=== PATIENT | male | born 1935 | race Caucasian/White ===

== ENCOUNTER 2017-04-08 17:04 | Inpatient (IN) | payer OTHER, MEDICARE ==
[2017-04-08] VITALS (8 sets, daily range): BP systolic 113–199; BP diastolic 74–93; PULSE 57–108; RESP 18–20; TEMP 97.7; O2SAT 80–97
[~2017-04-08] VITALS: Ht 182.9 cm; Wt 69.2 kg
[~2017-04-08 17:04] MED LIST: ALBU6.7H INH; CARV6.252 PO; LEVA500T PO; MUCI600T PO; OMEG100037 PO; PRED10 PO; RAMI2.5 PO
[2017-04-08] MEDS ORDERED: TYLETAB34 PO (17:24)
[2017-04-08] MEDS ORDERED: SYMB80AE INH (17:26)
[2017-04-08] MEDS ORDERED: ALBU0.63 NEB (17:26)
--- NOTE | 2017-04-08 17:29 | PD ---
HPI Chief Complaint: Respiratory Symptoms Time Seen by Provider: 17:27 Travel History International Travel<30 days: No Contact w/Intl Traveler<30days: No Traveled to known affect area: No History of Present Illness HPI 81 YO M with PMH of GERD, CAD, COPD, CHF, A. fib, HTN, chronic back pain, implanted AICD presents to the ED for evaluation of 3 day history of worsening nonproductive cough and shortness of breath. Onset gradual. Patient denies fever, chills, abdominal pain, nausea, vomiting, dysuria, lower extremity swelling. He uses oxygen at home which he ordered from [facility]. O2 has not been ordered by his primary physician at the [place]. He is followed by Dr. Rojas, cardiology and Dr. Rosenberg, pulmonology. He was seen at a [facility] today, told that he had PNA or possible effusion and instructed to follow up in the emergency department. PFSH Past Medical History Arthritis: Yes Asthma: Yes Blood Disorders: Yes (CIRCULATION DISORDER) Anxiety: Yes Depression: Yes Heart Rhythm Problems: Yes (heart murmer. ) Cancer: No Cardiovascular Problems: Yes (CAD) High Cholesterol: No Chemotherapy: No Chest Pain: Yes Congestive Heart Failure: No COPD: Yes Coronary Artery Disease: Yes Diabetes: No Diminished Hearing: Yes (KARL) Endocrine: No Gastrointestinal Disorders: Yes (GERD, ULCER HX) GERD: Yes Genitourinary: Yes (BPH, HX KIDNEY STONE) Headaches: Yes (TEMPORAL) Hepatitis: Yes (HEP C) Hiatal Hernia: No Hypertension: Yes Immune Disorder: No Implanted Vascular Access Dvce: Yes Kidney Stones: No Musculoskeletal: Yes ( SPINAL STENOSIS) Neurologic: Yes (NUMBNESS LEFT ARM, VERTIGO, HEADACHES) Psychiatric: No Reproductive: No Respiratory: Yes (PNEUMOTHORAX - L LUNG ) Migraines: No Myocardial Infarction: Yes Radiation Therapy: No Renal Failure: No Seizures: No Sickle Cell Disease: No Sleep Apnea: Yes Thyroid Disease: No Ulcer: Yes Past Surgical History Abdominal Surgery: Yes (HEMIGASTRECTOMY (40%), LEFT ING. HERNIA REP. (X3)) AICD: No Arteriovenous Shunt: No Body Medical Devices: MARCO LEFT LUNG, CERVICAL FUSION Cardiac Surgery: Yes Ear Surgery: No Endocrine Surgery: No Eye Surgery: Yes (B CATARACT EXTRACT) Genitourinary Surgery: Yes Gynecologic Surgery: No Insulin Pump: No Joint Replacement: No Neurologic Surgery: No Oral Surgery: No Pacemaker: Yes (PACE/DEFIB, UNKNOWN TYPE/MANUFAC) Thoracic Surgery: Yes (LEFT PNEUMOTHORAX REP) Other Surgery: Yes (SINUS X3) Social History Alcohol Use: No Tobacco Use: No Substance Use: No Allergies-Medications (Allergen,Severity, Reaction): Coded Allergies: PEANUTS (Verified Allergy, Intermediate, 04/08/17) Black Pepper (Unverified Adverse Reaction, Intermediate, IRRITATES SINUSES , 04/08/17) Egg Allergy (Unverified Adverse Reaction, Intermediate, COUGH, 04/08/17) PT STATES NOT ALLERGIC TO EGGS Reported Meds & Prescriptions Reported Meds & Active Scripts Active Reported Symbicort Inh (Budesonide/Formoterol Fumarate) 80-4.5 Mcg/Act Aero 1 Puff INH Q12HR Albuterol Neb (Albuterol Sulfate) 0.63 Mg/3 Ml Neb 0.63 Mg NEB QID NEB PRN Tylenol-Codeine #3 (Acetaminophen-Codeine) 300-30 mg Tab 1-2 Tab PO Q8HR PRN Review of Systems Except as stated in HPI: all other systems reviewed are Neg Physical Exam Narrative GENERAL: Thin, elderly white male in NAD. Coughing frequently on exam. SKIN: Focused skin assessment warm/dry. HEAD: Normocephalic. EYES: No scleral icterus. No injection or drainage. NECK: Supple, trachea midline. ++JVD. No lymphadenopathy. CARDIOVASCULAR: Regular rate and rhythm without murmurs, gallops, or rubs. RESPIRATORY: Breath sounds clear and equal bilaterally. ++ accessory muscle use. GASTROINTESTINAL: Abdomen soft, non-tender, nondistended. MUSCULOSKELETAL: No cyanosis, or edema. Hohmann sign negative bilaterally. BACK: Nontender without obvious deformity. No CVA tenderness. Data Data Last Documented VS Vital Signs Date Time Temp Pulse Resp B/P Pulse Ox O2 Delivery O2 Flow Rate FiO2 04/08/17 20:30 94 20 189/90 95 Room Air 04/08/17 17:18 2 04/08/17 17:08 97.7 Orders Electrocardiogram (04/08/17 ) Complete Blood Count With Diff (04/08/17 17:39) Comprehensive Metabolic Panel (04/08/17 17:39) B-Type Natriuretic Peptide (04/08/17 17:39) Act Partial Throm Time (Ptt) (04/08/17 17:39) Prothrombin Time / Inr (Pt) (04/08/17 17:39) Ckmb (Isoenzyme) Profile (04/08/17 17:39) Troponin I (04/08/17 17:39) Urinalysis - C+S If Indicated (04/08/17 17:39) Blood Culture (04/08/17 17:39) Iv Access Insert/Monitor (04/08/17 17:39) Ecg Monitoring (04/08/17 17:39) Oximetry (04/08/17 17:39) Oxygen Administration (04/08/17 17:39) Chest, Single Ap (04/08/17 17:39) Sodium Chloride 0.9% Flush (Ns Flush) (04/08/17 17:45) Lidocaine Pf 4% Neb (Lidocaine Pf 4% Neb (04/08/17 18:45) CKMB (04/08/17 17:45) CKMB% (04/08/17 17:45) Arterial Blood Gas (Abg) (04/08/17 ) Levofloxacin 750 Mg Premix Inj (Levaquin (04/08/17 20:15) Benzonatate (Tessalon) (04/08/17 20:30) ^ Straight Catheter (04/08/17 20:17) B-Type Natriuretic Peptide (04/08/17 20:19) Diet Heart Healthy (04/09/17 Breakfast) Admit Order (Ed Use Only) (04/08/17 21:11) Labs Laboratory Tests Test 04/08/17 04/08/17 04/08/17 17:45 19:16 20:20 White Blood Count 9.0 TH/MM3 Red Blood Count 4.32 MIL/MM3 Hemoglobin 13.7 GM/DL Hematocrit 42.0 % Mean Corpuscular Volume 97.2 FL Mean Corpuscular Hemoglobin 31.7 PG Mean Corpuscular Hemoglobin 32.6 % Concent Red Cell Distribution Width 13.3 % Platelet Count 257 TH/MM3 Mean Platelet Volume 8.9 FL Neutrophils (%) (Auto) 72.2 % Lymphocytes (%) (Auto) 13.6 % Monocytes (%) (Auto) 10.5 % Eosinophils (%) (Auto) 2.9 % Basophils (%) (Auto) 0.8 % Neutrophils # (Auto) 6.5 TH/MM3 Lymphocytes # (Auto) 1.2 TH/MM3 Monocytes # (Auto) 0.9 TH/MM3 Eosinophils # (Auto) 0.3 TH/MM3 Basophils # (Auto) 0.1 TH/MM3 CBC Comment DIFF FINAL Differential Comment Prothrombin Time 12.7 SEC Prothromb Time International 1.1 RATIO Ratio Activated Partial 29.3 SEC Thromboplast Time Sodium Level 130 MEQ/L Potassium Level 4.1 MEQ/L Chloride Level 94 MEQ/L Carbon Dioxide Level 24.8 MEQ/L Anion Gap 11 MEQ/L Blood Urea Nitrogen 14 MG/DL Creatinine 0.86 MG/DL Estimat Glomerular Filtration 85 ML/MIN Rate Random Glucose 87 MG/DL Calcium Level 8.7 MG/DL Total Bilirubin 0.7 MG/DL Aspartate Amino Transf 18 U/L (AST/SGOT) Alanine Aminotransferase 21 U/L (ALT/SGPT) Alkaline Phosphatase 98 U/L Total Creatine Kinase 112 U/L Creatine Kinase MB 4.4 NG/ML Troponin I LESS THAN 0.02 NG/ML B-Type Natriuretic Peptide 194 PG/ML Total Protein 7.6 GM/DL Albumin 4.3 GM/DL Blood Gas Puncture Site RT RADIAL Blood Gas Patient Temperature 98.6 Blood Gas HCO3 21 mmol/L Blood Gas Base Excess -2.3 mmol/L Blood Gas Oxygen Saturation 93 % Arterial Blood pH 7.48 Arterial Blood Partial 29 mmHg Pressure CO2 Arterial Blood Partial 76 mmHG Pressure O2 Arterial Blood Oxygen Content 17.3 Vol % Arterial Blood 0.5 % Carboxyhemoglobin Arterial Blood Methemoglobin 1.5 % Blood Gas Hemoglobin 13.2 G/DL Oxygen Delivery Device ROOM AIR Blood Gas Inspired Oxygen 21 % Urine Color YELLOW Urine Turbidity CLEAR Urine pH 6.5 Urine Specific [place] 1.014 Urine Protein NEG mg/dL Urine Glucose (UA) 70 mg/dL Urine Ketones 10 mg/dL Urine Occult Blood NEG Urine Nitrite NEG Urine Bilirubin NEG Urine Urobilinogen LESS THAN 2.0 MG/DL Urine Leukocyte Esterase NEG Urine RBC LESS THAN 1 /hpf Urine WBC 1 /hpf Urine Hyaline Casts 1 /lpf Microscopic Urinalysis Comment CULT NOT INDICATED MDM Medical Decision Making Medical Screen Exam Complete: Yes Emergency Medical Condition: Yes Differential Diagnosis COPD exacerbation versus PNA versus CHF exacerbation versus Narrative Course 81 YO M with PMH of GERD, CAD, COPD, CHF, A. fib, HTN, chronic back pain, implanted AICD presents to the ED for evaluation of 3 day history of worsening nonproductive cough and shortness of breath. Onset gradual. Patient denies fever, chills, abdominal pain, nausea, vomiting, dysuria, lower extremity swelling. He uses oxygen at home which he ordered from [facility]. O2 has not been ordered by his primary physician at the [place]. He is followed by Dr. Rojas, cardiology and Dr. Rosenberg, pulmonology. He was seen at a [facility] care today, told that he had PNA or possible effusion and instructed to follow up in the emergency department. 97.7, O2 sat 85% on room air in triage. Physical exam reveals a thin white male in no acute distress. Chronically coughing but breath sounds are clear bilaterally. No lower extremity edema. Homans sign negative bilaterally. Blood cultures were obtained. Patient was administered aerosolized lidocaine to treat cough. CBC: WBC 9.0. Hemoglobin 13.7. Coags INR 1.1. CMP: Sodium 130, chloride 94. Cardiac enzymes negative 1. BNP: 195 EKG: Rate 88, paced rhythm. No ST changes. Reviewed by Dr. Rose. CXR: Left lung base atelectasis, surgical changes and slightly worsened volume loss on the left per radiology. Blood gas: Respiratory alkalosis with secondary non-anion gap metabolic acidosis. Patients cough not improved with treatment. He is administered 100mg Tessalon PO and IV Levaquin. O2 sats currently 96% on room air. I discussed the patient with Dr. Rose who recommends admission for observation. I discussed this plan with the patient who is agreeable. Call placed to [facility]. I spoke with Dr. Terrell who agrees to accept the patient to the medicine service. Please see medicine notes for disposition. Agnieszka Fields Apr 08, 2017 17:29
[2017-04-08] MEDS ORDERED: SODIUM CHLORIDE 0.9% FLUSH 10 ML FLUSH IVF PRN (17:45)
--- NOTE | 2017-04-08 18:01 | RADRPT ---
EXAM DATE/TIME: 04/08/2017 17:52 [facility] COMPARISON: No previous studies available for comparison. INDICATIONS : Difficulty breathing and cough. MEDICAL HISTORY : Hypertension. Chronic obstructive pulmonary disease. Asthma. SURGICAL HISTORY : Pacemaker. Left pneumothorax repair. Cervical fusion. ENCOUNTER: Initial ACUITY: 1 month PAIN SCORE: 0/10 LOCATION: Bilateral chest FINDINGS: Trace left base atelectasis noted. There is left volume loss, increased. Elevated left hemidiaphragm, not new but worse. Surgical clips project over the left lung apex. Right lung is clear. No effusion or pneumothorax seen on either side. CONCLUSION: Mild left base atelectasis. Surgical changes and with slightly worse volume loss on the left. Darrell Reyes MD on April 08, 2017 at 17:58 Board Certified Radiologist. This report was verified electronically.
[2017-04-08 18:19] LABS: AUTOMATED NEUTROPHIL # 6.5 TH/MM3 (1.8-7.7); BASOPHIL # 0.1 TH/MM3 (0-0.2); BASOPHIL % 0.8 % (0.0-2.0); EOSINOPHIL # 0.3 TH/MM3 (0-0.4); EOSINOPHIL % 2.9 % (0.0-4.0); HEMO FLAGS DIFF FINAL; LYMPH % 13.6 % (9.0-44.0); LYMPHOCYTE # 1.2 TH/MM3 (1.0-4.8); MEAN CELL VOLUME 97.2 FL (80.0-100.0); MEAN CORPUSCULAR HEMOGLOBIN 31.7 PG (27.0-34.0); MEAN CORPUSCULAR HGB CONC 32.6 % (32.0-36.0); MONO % 10.5 % (0.0-8.0); NEUT % 72.2 % (16.0-70.0); PLATELET COUNT 257 TH/MM3 (150-450); RED BLOOD COUNT 4.32 MIL/MM3 (4.50-5.90); RED CELL DISTRIBUTION WIDTH 13.3 % (11.6-17.2)
[2017-04-08 18:29] LABS: APTT (PATIENT) 29.3 SEC (24.3-30.1); INTERNATIONAL NORMALIZED RATIO 1.1 RATIO; PROTHROMBIN TIME - PATIENT 12.7 SEC (9.8-11.6)
[2017-04-08 18:34] LABS: ANION GAP 11 MEQ/L (5-15); AST (GOT) 18 U/L (15-37); BICARBONATE 24.8 MEQ/L (21.0-32.0); BLOOD UREA NITROGEN 14 MG/DL (7-18); CHLORIDE 94 MEQ/L (98-107); GLOMERULAR FILTRATION RATE 85 ML/MIN (>89); POTASSIUM 4.1 MEQ/L (3.5-5.1); SODIUM (NA) 130 MEQ/L (136-145)
[2017-04-08 18:35] LABS: ALT (GPT) 21 U/L (12-78)
[2017-04-08 18:39] LABS: ALKALINE PHOSPHATASE 98 U/L (45-117); CREATINE KINASE 112 U/L (39-308); TOTAL BILIRUBIN ADULT 0.7 MG/DL (0.2-1.0)
[2017-04-08] MEDS ORDERED: RESP: LIDOCAINE HCL 4% PF 5 ML NEB NEB ONE (18:45)
[2017-04-08 18:51] LABS: CKMB 4.4 NG/ML (0.5-3.6)
[2017-04-08 19:26] LABS: BLOOD GAS BASE EXCESS -2.3 mmol/L (-2-2); BLOOD GAS CARBOXYHEMOGLOBIN 0.5 % (0-4); BLOOD GAS HCO3 21 mmol/L (22-26); BLOOD GAS METHEMOGLOBIN 1.5 % (0-2); BLOOD GAS O2 HGB SATURATION 93 % (90-100); BLOOD GAS OXYGEN CONTENT 17.3 Vol % (12.0-20.0); BLOOD GAS PCO2 29 mmHg (38-42); BLOOD GAS PO2 76 mmHG (61-120); BLOOD GAS TOTAL HGB 13.2 G/DL (12.0-16.0); CRITICAL VALUE NO; DRAW SITE RT RADIAL; FIO2 21 %; NUMBER OF ARTERIAL PUNCTURES 1; OXYGEN DEVICE ROOM AIR; STAT YES; TEMP CORR TO 98.6; ULNAR PULSE PRESENT
[2017-04-08] MEDS ORDERED: LEVOFLOXACIN 750 MG PREMIX INJ 150 ML IV ONE (20:15)
[2017-04-08] MEDS ORDERED: BENZONATATE 100 MG CAP PO ONE ×2 (20:30→22:15)
[2017-04-08 21:06] LABS: BLOOD, URINE NEG (NEG); COMMENT (UR) CULT NOT INDICATED; CULTURE IF INDICATED CULT NOT INDICATED; GLUCOSE,URINE 70 mg/dL (NEG); HYALINE CAST, URINE 1 /lpf (RARE); KETONE, URINE 10 mg/dL (NEG); NITRITE,URINE NEG (NEG); PH, URINE 6.5 (5.0-8.5); URINE COLOR YELLOW (YELLW/STRAW)
[2017-04-08] MEDS ORDERED: RESP: ALBUTEROL 2.5 MG/IPRATROPIUM 0.5 MG NEB (PRN) NEB (21:45)
[2017-04-08] MEDS ORDERED: LEVOFLOXACIN 750 MG PREMIX INJ 150 ML IV SCH (21:45)
[2017-04-08] MEDS ORDERED: SODIUM CHLORIDE 0.9% FLUSH 10 ML FLUSH IV FLUSH PRN (21:45)
[2017-04-08] MEDS ORDERED: BISACODYL 10 MG SUPP RECTAL PRN (21:45)
[2017-04-08] MEDS ORDERED: LACTULOSE SYRUP 20 GM/30 ML CUP PO PRN (21:45)
[2017-04-08] MEDS ORDERED: MAGNESIUM HYDROXIDE SUSP 30 ML CUP PO PRN (21:45)
[2017-04-08] MEDS ORDERED: ONDANSETRON HCL 4 MG/2 ML VIAL IVP PRN (21:45)
[2017-04-08] MEDS ORDERED: ACETAMINOPHEN 325 MG TAB PO PRN (21:45)
[2017-04-08] MEDS: SODIUM CHLOR 0.9% 1000 ML INJ 1,000 ML IV SCH (22:08)
[2017-04-08] MEDS: methylPREDNISolone SOD SUCC 40 MG/1 ML VIAL IV PUSH SCH (22:33)
[2017-04-09] VITALS (8 sets, daily range): BP systolic 113–190; BP diastolic 70–101; PULSE 67–95; RESP 14–22; TEMP 95.6–97.9; O2SAT 94–97
[2017-04-09] MEDS: BENZONATATE 100 MG CAP PO PRN ×3 (00:33→22:09)
[2017-04-09] MEDS: guaiFENesin/CODEINE SYRUP 200 MG/20 MG/10 ML CUP PO PRN ×3 (00:33→22:09)
--- NOTE | 2017-04-09 01:15 | HHI.HP ---
HPI Service [facility] Primary Care Physician [facility] Admission Diagnosis hypoxia, possible PNA Diagnoses: Chief Complaint: worsening cough Travel History International Travel<30 Days: No Contact w/Intl Traveler <30 Da: No Traveled to Known Affected Are: No History of Present Illness Written by Lisa Fuentes, acting as scribe for Dr. Terrell on 04/09/17 at 01 :12. This note was transcribed by scribMarissa MIJARES. I, Dr. Dolores Terrell personally performed the history, physical exam, and medical decision making; and confirmed the accuracy of the information in the transcribed note. Authenticated by Dr. Dolores Terrell on 04/09/17 at 01:12. This is a 81-year-old male with past medical history which includes coronary artery disease with SC, Anemia, Allergic rhinitis, Chronic pain and GERD. Patient reports he has had a persistent dry nonproductive cough for the past 1- 2 months. Patient reports the is cough started after he had a Left arm venous bypass graft. Patient presents to the ER today due to worsening of this persistent nonproductive cough and shortness of breath. On admission patient presented with pulse oxygenation of 85%. Patient uses oxygen at home which he ordered from [facility]. O2 has not been ordered by his physician. Patient reports his cough continues through out both day and night. Patient has tried over the counter Mucinex with minimal relief. Patient reports drinking wine daily to help sooth his throat. Patient denies chest pain, fever , chills, abdominal pain, nausea, vomiting, dysuria, lower extremity swelling or weight gain. Patient is followed by Dr. Rojas, cardiology and Dr. Schroeder, pulmonology. [facility], told that he had PNA or possible effusion and instructed to follow up in the emergency department. Review of Systems Except as stated in HPI: all other systems reviewed are Neg Past Family Social History Past Medical History Coronary artery disease with SC Anemia Allergic rhinitis Chronic pain GERD Past Surgical History partial gastrectomy Left arm venous bypass graft Cataract removal Multiple back and neck surgeries Bilateral inguinal hernia repair on 01/29/15 Reported Medications Symbicort Inh (Budesonide/Formoterol Fumarate) 80-4.5 Mcg/Act Aero 1 Puff INH Q12HR Albuterol Neb (Albuterol Sulfate) 0.63 Mg/3 Ml Neb 0.63 Mg NEB QID NEB PRN Tylenol-Codeine #3 (Acetaminophen-Codeine) 300-30 mg Tab 1-2 Tab PO Q8HR PRN Allergies: Coded Allergies: PEANUTS (Verified Allergy, Intermediate, 04/08/17) Black Pepper (Unverified Adverse Reaction, Intermediate, IRRITATES SINUSES , 04/08/17) Egg Allergy (Unverified Adverse Reaction, Intermediate, COUGH, 04/08/17) PT STATES NOT ALLERGIC TO EGGS Active Ordered Medications Current Medications Medications (Trade) Dose Ordered Sig/Dashawn Route Start Time Stop Time Status Last Admin (NS 1000 ml Inj) 1,000 ml @ 100 mls/hr Q10H IV 04/08/17 21:36 04/08/17 22:08 (NS Flush) 2 ml UNSCH PRN IV FLUSH 04/08/17 21:45 (NS Flush) 2 ml BID IV FLUSH 04/09/17 09:00 (Tylenol) 650 mg Q4H PRN PO 04/08/17 21:45 (Zofran Inj) 4 mg Q6H PRN IVP 04/08/17 21:45 (Restoril) 15 mg HS PRN PO 04/08/17 21:45 (Carol-Colace) 1 tab BID PO 04/09/17 09:00 (Milk Of Magnesia Liq) 30 ml Q12H PRN PO 04/08/17 21:45 (Senokot) 17.2 mg Q12H PRN PO 04/08/17 21:45 (Dulcolax Supp) 10 mg DAILY PRN RECTAL 04/08/17 21:45 Lactulose 30 ml 30 ml DAILY PRN PO 04/08/17 21:45 (Levaquin 750 Mg Premix Inj) 150 ml @ 100 mls/hr Q24H IV 04/09/17 21:00 (Tessalon) 100 mg TID PRN PO 04/08/17 21:45 04/09/17 00:33 (SoluMEDROL INJ) 40 mg Q8HR IV PUSH 04/08/17 22:00 04/08/17 22:33 (Robitussin Ac 200-20 Mg/10 ml Liq) 10 ml Q6H PRN PO 04/09/17 00:00 04/09/17 00:33 Family History Mother had DM Social History Patient lives at home with son and daughter, stop smoking 50+ years ago used to smoke 1.5 packs per day for 14 years ETOH use 1-2 glasses of wine per day Physical Exam Vital Signs Vital Signs Date Time Temp Pulse Resp B/P Pulse Ox O2 Delivery O2 Flow Rate FiO2 04/08/17 22:09 95 18 183/92 95 04/08/17 22:02 94 21 04/08/17 21:25 108 18 189/90 95 Room Air 04/08/17 20:30 94 20 189/90 95 Room Air 04/08/17 17:25 90 20 199/93 96 Room Air 04/08/17 17:18 97 Nasal Cannula 2 04/08/17 17:18 97 Nasal Cannula 2 04/08/17 17:18 17 Room Air 04/08/17 17:08 97.7 57 20 113/74 85 Physical Exam GENERAL: This is a well-nourished, well-developed patient, persistent dry nonproductive cough on inspiration SKIN: No rashes, ecchymoses or lesions. Cool and dry. HEAD: Atraumatic. Normocephalic. No temporal or scalp tenderness. EYES: Extraocular motions intact. No scleral icterus. No injection or drainage. ENT: Nose without bleeding, purulent drainage or septal hematoma. Throat without erythema, tonsillar hypertrophy or exudate. Uvula midline. Airway patent. NECK: Trachea midline. No JVD or lymphadenopathy. Supple, nontender, no meningeal signs. CARDIOVASCULAR: Regular rate and rhythm without murmurs, gallops, or rubs. RESPIRATORY: Persistent cough with inspiration. Lungs clear to auscultation. Breath sounds equal bilaterally. No wheezes, rales, or rhonchi. GASTROINTESTINAL: Abdomen soft, non-tender, nondistended. No hepato-splenomegaly , or palpable masses. No guarding. MUSCULOSKELETAL: Extremities without clubbing, cyanosis, or edema. No joint tenderness, effusion, or edema noted. No calf tenderness. Negative Homans sign bilaterally. NEUROLOGICAL: Awake and alert. Cranial nerves II through XII intact. Motor and sensory grossly within normal limits. Five out of 5 muscle strength in all muscle groups. Normal speech. Laboratory Laboratory Tests Test 04/08/17 04/08/17 04/08/17 04/08/17 17:45 19:16 20:20 22:00 White Blood Count 9.0 Red Blood Count 4.32 Hemoglobin 13.7 Hematocrit 42.0 Mean Corpuscular Volume 97.2 Mean Corpuscular Hemoglobin 31.7 Mean Corpuscular Hemoglobin 32.6 Concent Red Cell Distribution Width 13.3 Platelet Count 257 Mean Platelet Volume 8.9 Neutrophils (%) (Auto) 72.2 Lymphocytes (%) (Auto) 13.6 Monocytes (%) (Auto) 10.5 Eosinophils (%) (Auto) 2.9 Basophils (%) (Auto) 0.8 Neutrophils # (Auto) 6.5 Lymphocytes # (Auto) 1.2 Monocytes # (Auto) 0.9 Eosinophils # (Auto) 0.3 Basophils # (Auto) 0.1 CBC Comment DIFF FINAL Differential Comment Prothrombin Time 12.7 Prothromb Time International 1.1 Ratio Activated Partial 29.3 Thromboplast Time Sodium Level 130 Potassium Level 4.1 Chloride Level 94 Carbon Dioxide Level 24.8 Anion Gap 11 Blood Urea Nitrogen 14 Creatinine 0.86 Estimat Glomerular Filtration 85 Rate Random Glucose 87 Calcium Level 8.7 Total Bilirubin 0.7 Aspartate Amino Transf 18 (AST/SGOT) Alanine Aminotransferase 21 (ALT/SGPT) Alkaline Phosphatase 98 Total Creatine Kinase 112 Creatine Kinase MB 4.4 Troponin I LESS THAN 0.02 B-Type Natriuretic Peptide 194 155 Total Protein 7.6 Albumin 4.3 Blood Gas Puncture Site RT RADIAL Blood Gas Patient Temperature 98.6 Blood Gas HCO3 21 Blood Gas Base Excess -2.3 Blood Gas Oxygen Saturation 93 Arterial Blood pH 7.48 Arterial Blood Partial 29 Pressure CO2 Arterial Blood Partial 76 Pressure O2 Arterial Blood Oxygen Content 17.3 Arterial Blood 0.5 Carboxyhemoglobin Arterial Blood Methemoglobin 1.5 Blood Gas Hemoglobin 13.2 Oxygen Delivery Device ROOM AIR Blood Gas Inspired Oxygen 21 Urine Color YELLOW Urine Turbidity CLEAR Urine pH 6.5 Urine Specific [place] 1.014 Urine Protein NEG Urine Glucose (UA) 70 Urine Ketones 10 Urine Occult Blood NEG Urine Nitrite NEG Urine Bilirubin NEG Urine Urobilinogen LESS THAN 2.0 Urine Leukocyte Esterase NEG Urine RBC LESS THAN 1 Urine WBC 1 Urine Hyaline Casts 1 Microscopic Urinalysis Comment CULT NOT INDICATED Date/Time Procedure Status Source Growth 04/08/17 21:36 Legionella Antigen Received Urine Random Urine Pending 04/08/17 21:36 Streptococcus pneumoniae Antigen (M Received Urine Random Urine Pending 04/08/17 17:45 Aerobic Blood Culture Received Blood Line Pending 04/08/17 17:45 Anaerobic Blood Culture Received Blood Line Pending Result Diagram: 04/08/17 1745 04/08/17 1745 Imaging Last Impressions Chest X-Ray 04/08/17 1739 Signed Impressions: Service Date/Time: Saturday, April 08, 2017 17:52 - CONCLUSION: Mild left base atelectasis. Surgical changes and with slightly worse volume loss on the left. Darrell Reyes MD Assessment and Plan Problem List: (1) Acute respiratory failure ICD Code: J96.00 Status: Acute (2) Hypoxia ICD Code: R09.02 Status: Acute (3) PNA (pneumonia) ICD Code: J18.9 Status: Acute (4) COPD exacerbation ICD Code: J44.1 Status: Acute Assessment and Plan This is a 81-year-old male with past medical history which includes coronary artery disease with SC, Anemia, Allergic rhinitis, Chronic pain and GERD. Patient reports he has had a persistent dry nonproductive cough for the past 1- 2 months. Patient reports the is cough started after he had a Left arm venous bypass graft. Patient presents to the ER today due to worsening of this persistent nonproductive cough and shortness of breath. On admission patient presented with pulse oxygenation of 85%. Patient uses oxygen at home which he ordered from [facility]. O2 has not been ordered by his physician. Acute respiratory failure with hypoxia acute exacerbation of chronic COPD PNA Cough CXR reviewed by me reveals Mild left base atelectasis. Surgical changes and with slightly worse volume loss on the left. Titrate oxygen via NC to maintain oxygen saturation Start Levaquin 750mg IV daily DuoNeb scheduled and as needed Solumedrol 40 mg IV Q6H Resume home medication Symbicort Consult Pulmonology, patient known to Dr. Tee Lizama AC Urine for Legionella antigen, Pneumococcal antigen Sputum for C&S Mateusz omer and Dl with codeine for cough DVT prophylaxis with SCDs and TEDS Discussed with ER provider, nursing and patient Physician Certification 2 Midnight Certification Type: Admission for Inpatient Services Order for Inpatient Services The services are ordered in accordance with Medicare regulations or non- Medicare payer requirements, as applicable. In the case of services not specified as inpatient-only, they are appropriately provided as inpatient services in accordance with the 2-midnight benchmark. Estimated LOS (days): 3 days is the estimated time the patient will need to remain in the hospital, assuming treatment plan goals are met and no additional complications. Post-Hospital Plan: Not yet determined Lisa Fuentes Apr 09, 2017 01:15 Dolorse Terrell MD Apr 09, 2017 04:42
[2017-04-09] MEDS: TEMAZEPAM 15 MG CAP PO PRN ×2 (01:18→22:10)
[2017-04-09 05:41] LABS: ALKALINE PHOSPHATASE 89 U/L (45-117); ALT (GPT) 18 U/L (12-78); ANION GAP 12 MEQ/L (5-15); AST (GOT) 22 U/L (15-37); BICARBONATE 19.4 MEQ/L (21.0-32.0); CHLORIDE 97 MEQ/L (98-107); GLOMERULAR FILTRATION RATE 94 ML/MIN (>89); POTASSIUM 4.9 MEQ/L (3.5-5.1); SODIUM (NA) 128 MEQ/L (136-145); TOTAL BILIRUBIN ADULT 0.6 MG/DL (0.2-1.0)
[2017-04-09 06:02] LABS: BLOOD UREA NITROGEN 14 MG/DL (7-18)
[2017-04-09] MEDS: methylPREDNISolone SOD SUCC 40 MG/1 ML VIAL IV PUSH SCH ×3 (06:48→22:08)
[2017-04-09 07:09] LABS: AUTOMATED NEUTROPHIL # 6.8 TH/MM3 (1.8-7.7); BASOPHIL % 0.4 % (0.0-2.0); EOSINOPHIL % 0.2 % (0.0-4.0); HEMATOCRIT 44.7 % (39.0-51.0); HEMO FLAGS DIFF FINAL; LYMPH % 6.3 % (9.0-44.0); LYMPHOCYTE # 0.5 TH/MM3 (1.0-4.8); MEAN CELL VOLUME 96.2 FL (80.0-100.0); MEAN CORPUSCULAR HEMOGLOBIN 31.8 PG (27.0-34.0); MONO % 2.5 % (0.0-8.0); NEUT % 90.6 % (16.0-70.0); PLATELET COUNT 195 TH/MM3 (150-450); RED BLOOD COUNT 4.64 MIL/MM3 (4.50-5.90); RED CELL DISTRIBUTION WIDTH 13.4 % (11.6-17.2); WHITE BLOOD COUNT 7.5 TH/MM3 (4.0-11.0)
[2017-04-09] MEDS: RESP: ALBUTEROL 2.5 MG/IPRATROPIUM 0.5 MG NEB (SCH) NEB ×4 (08:42→20:19)
[2017-04-09] MEDS: DOCUSATE SODIUM 50 MG/SENNA 8.6 MG TAB PO SCH ×2 (08:59→22:10)
[2017-04-09] MEDS: SODIUM CHLORIDE 0.9% FLUSH 10 ML FLUSH IV FLUSH SCH ×2 (08:59→21:00)
[2017-04-09] MEDS: SODIUM CHLOR 0.9% 1000 ML INJ 1,000 ML IV SCH ×3 (08:59→22:07)
[2017-04-09] MEDS ORDERED: BUDESONIDE-FORMOTEROL 80/4.5 MCG INHALER INH SCH (09:00)
--- NOTE | 2017-04-09 12:33 | HHI.PR ---
Subjective Remarks Patient just admitted today seen in his bedroom in the presence of Respiratory Therapy specialist. as we know the patient has GERD, CAD, Anemia, End Stage COPD, with Respiratory insufficiency, asked for epic willow specialist consult, he had CABG and after this procedure, he worsened his shortness of breath, will continue Bronchodilator, Mucolytic, incentive spirometry follow recommendations by epic willow specialist. Objective Vital Signs Date Time Temp Pulse Resp B/P Pulse Ox O2 Delivery O2 Flow Rate FiO2 04/09/17 11:11 Nasal Cannula 2.00 04/09/17 08:43 96 Nasal Cannula 2.00 04/09/17 08:00 95.7 67 14 129/95 96 04/09/17 04:28 96.7 70 21 157/74 95 04/09/17 00:00 97.9 87 22 190/101 97 04/08/17 22:09 95 18 183/92 95 04/08/17 22:02 94 21 04/08/17 21:25 108 18 189/90 95 Room Air 04/08/17 20:30 94 20 189/90 95 Room Air 04/08/17 19:35 90 18 115/92 97 Room Air 04/08/17 17:25 90 20 199/93 96 Room Air 04/08/17 17:18 97 Nasal Cannula 2 04/08/17 17:18 97 Nasal Cannula 2 04/08/17 17:18 17 Room Air 04/08/17 17:08 97.7 57 20 113/74 85 I/O 04/08/17 04/08/17 04/08/17 04/09/17 04/09/17 04/09/17 07:00 15:00 23:00 07:00 15:00 23:00 Intake Total 957 ml Output Total 800 ml Balance 157 ml Intake Oral 280 ml IV Total 677 ml Output Urine Total 800 ml # Bowel Movements 1 Result Diagram: 04/09/17 0510 04/09/17 0510 Zachery Rendon MD Apr 09, 2017 12:33
[2017-04-09] MEDS: ACETAMINOPHEN/CODEINE 300 MG/30 MG TAB PO PRN (16:00)
--- NOTE | 2017-04-09 16:26 | RADRPT ---
EXAM DATE/TIME: 04/09/2017 15:14 [facility] COMPARISON: No previous studies available for comparison. INDICATIONS : Hypoxia today. RADIATION DOSE: 12.02 CTDIvol (mGy) MEDICAL HISTORY : Cerebrovascular disease. Myocardial infarction. Hepatitis C. SURGICAL HISTORY : Pacemaker. ENCOUNTER: Initial ACUITY: 1 day PAIN SCALE: 0/10 LOCATION: Bilateral chest TECHNIQUE: Volumetric scanning of the chest was performed. Using automated exposure control and adjustment of t he mA and/or kV according to patient size, radiation dose was kept as low as reasonably achievable to obtain optimal diagnostic quality images. FINDINGS: The heart is enlarged. Coronary artery calcifications are noted. Multi-lead left subclavian pacemak er has its tips in the right atrium and right ventricle. There is elevation of the left hemidiaphragm. Left basilar bronchiectasis is noted. Minimal patchiness is noted within the left lung base consistent with atelectasis and/or deve loping infiltrate. Bi-apical fibrotic scarring and emphysematous changes are noted. No pulmonary nodule or mass is noted. no mediastinal, hilar or axillary lymphadenopathy is noted. No pleural effusion is noted. D egenerative changes and scoliosis of the thoracolumbar spine are noted. CONCLUSION: 1. Focal patchiness within the left lung base consistent with atelectasis and/or mild infiltrate wit h underlying bronchiectasis. 2. Bi-apical fibrotic scarring and emphysematous changes. 3. Elevation of left hemidiaphragm. 4. Cardiomegaly and coronary artery calcifications. 5. Degenerative changes and scoliosis of the thoracolumbar spine. Delta Bustillo MD on April 09, 2017 at 16:03 Board Certified Radiologist. This report was verified electronically.
--- NOTE | 2017-04-09 18:45 | EKG ---
Date Performed: 04/08/2017 Time Performed: 17:39:23 PTAGE: 81 years EKG: Sinus rhythm P wave syncronous ventricular pacing with fussion complexes. Patient is no longer in atrial fibrilla tion when compared to previous Tracing. ABNORMAL RHYTHM ECG PREVIOUS TRACING : 08/12/2016 19.25 DOCTOR: Quinten Rose Interpretating Date/Time 04/09/2017 18:45:22
[2017-04-09] MEDS: SENNOSIDES 8.6 MG TAB PO PRN (20:00)
[2017-04-09] MEDS ORDERED: BUDESONIDE-FORMOTEROL 160/4.5 MCG INHALER INH SCH (21:00)
[2017-04-09] MEDS: LEVOFLOXACIN 750 MG PREMIX INJ 150 ML IV SCH (22:08)
[2017-04-09] MEDS: BUDESONIDE-FORMOTEROL 160/4.5 MCG INHALER INH SCH (22:09)
[2017-04-10] VITALS (10 sets, daily range): BP systolic 99–158; BP diastolic 56–92; PULSE 72–92; RESP 16–20; TEMP 96.3–97.6; O2SAT 94–100
[2017-04-10] MEDS: ACETAMINOPHEN/CODEINE 300 MG/30 MG TAB PO PRN (00:19)
[2017-04-10] MEDS: methylPREDNISolone SOD SUCC 40 MG/1 ML VIAL IV PUSH SCH ×3 (05:20→21:09)
--- NOTE | 2017-04-10 07:26 | MB ---
cc: LUCIE FOSTER DATE OF CONSULTATION 04/09/2017 REASON FOR CONSULTATION COPD and bilateral lung infiltrates. HISTORY OF PRESENT ILLNESS This is an 81-year-old male previously known to me with a history of COPD, as well as fibrotic lung disease who has been on oxygen at two liters at home. The patient apparently was admitted this week with complaints of shortness of breath, persistent cough and wheezing. The patient was orthopneic and his O2 sats were only in the lower 80 in spite of being on oxygen. He came to the ER and had to be placed on four liters of oxygen and now admitted and has been started on IV antibiotics and steroids. The patient does not bring up much sputum. He complains of some discomfort in his lower chest. He has some nausea and reflux and a chest x-ray showed evidence of upper lobe scarring. PAST HISTORY The patient's past history has included a history of: 1. Coronary artery disease 2. History of chronic back pain. 3. History of anemia of chronic disease. 4. Gastroesophageal reflux PAST SURGICAL HISTORY Includes: 1. Venous bypass graft on the left arm 2. A partial gastrectomy. 3. History of inguinal hernia repairs two years ago. 4. Several lower lumbar disk laminectomies and cervical disk fusion. HABITS The patient smoked a half to one-pack per day for over 12 years and then quit. He drinks alcohol moderately. FAMILY HISTORY Noncontributory MEDICATIONS 1. Symbicort 180 x 4.5 two puffs b.i.d. 2. Nebulized albuterol t.i.d. 3. Codeine q8h p.r.n. ALLERGIES EGGS AND PEANUTS REVIEW OF SYSTEMS The patient admits to weight loss. He has dizziness and postnasal drip. He has cough with minimal expectoration. No leg swelling. He does have some abdominal discomfort, nausea and reflux. He has no urinary symptoms, but have back and flank pains and neck pain. He has lost weight. He has depression with anxiety. PHYSICAL EXAMINATION This is a thinly built elderly white male who is alert in no acute distress. VITAL SIGNS: Blood pressure is 120/60, 80, respirations 24, temperature 97.5. HEENT: Head normocephalic. Pupils are reactive. Tongue is dry. Throat is injected. NECK: Supple. No bruits or thyroid enlargement. CHEST: Distant breath sounds with occasional crackles in the right lung field with wheezes throughout both lung alvarez. Prolonged expirations. HEART: Heart sounds are irregular, S1-S2 with no murmur. No S3. ABDOMEN: The abdomen is soft and protuberant without masses. No organomegaly or tenderness. EXTREMITIES: No edema. Peripheral pulses are diminished. Reflexes are with no gross motor deficits. SKIN: No lesions noted. IMPRESSION 1. Basilar pneumonia with hypoxemia. 2. COPD with chronic bronchitis 3. Interstitial lung disease and bronchiectasis 4. Chronic back pain PLAN The patient has been placed on O2 at 3-1/2 liter. We will continue with antibiotic coverage including Levaquin 750 [address] daily[address] A [address] scan of the chest will be obtained to evaluate his interstitial lung disease. We will also continue with antibiotic Levaquin 750 mg IV daily, Solu-Medrol 40 mg IV q.8 h to be continued and he will be placed on Symbicort 161 x 4.5 two puffs twice a day. Sputum will be sent for Gram stain and culture and nebulized DuoNeb solution added four times daily. If his infiltrates are persistent, consideration will be given for bronchoscopy and therapeutic lavage. Thank you Dr. Truong for this consultation. MD DARRELL Hobbs/KAYLEE /7:05 PM /7:15 AM
[2017-04-10] MEDS: RESP: ALBUTEROL 2.5 MG/IPRATROPIUM 0.5 MG NEB (SCH) NEB ×4 (07:51→19:04)
[2017-04-10] MEDS: DOCUSATE SODIUM 50 MG/SENNA 8.6 MG TAB PO SCH ×2 (08:55→21:09)
[2017-04-10] MEDS: SODIUM CHLORIDE 0.9% FLUSH 10 ML FLUSH IV FLUSH SCH ×2 (08:55→21:00)
[2017-04-10] MEDS: BUDESONIDE-FORMOTEROL 160/4.5 MCG INHALER INH SCH ×2 (08:55→21:14)
[2017-04-10] MEDS: guaiFENesin/CODEINE SYRUP 200 MG/20 MG/10 ML CUP PO PRN ×2 (08:59→14:34)
[2017-04-10] MEDS: SODIUM CHLOR 0.9% 1000 ML INJ 1,000 ML IV SCH (09:03)
--- NOTE | 2017-04-10 11:22 | HHI.PR ---
Subjective Remarks Has GERD, CAD, Anemia, End Stage COPD, with Respiratory insufficiency, asked for cardiac rehabilitation specialist consult, he had CABG and after this procedure, he worsened his shortness of breath, will continue Bronchodilator, Mucolytic, incentive spirometry follow recommendations by cardiac rehabilitation specialist. 04/10: Stable seen in his bedroom, no nausea, vomit or diarrhea. discussed with nurse Miss Garcia Objective Vital Signs Date Time Temp Pulse Resp B/P Pulse Ox O2 Delivery O2 Flow Rate FiO2 04/10/17 09:03 96 Nasal Cannula 3.00 04/10/17 08:00 96.6 73 16 141/63 96 04/10/17 07:52 96 Nasal Cannula 3.00 04/10/17 04:56 96.9 73 17 120/58 97 04/10/17 00:32 96.9 85 20 111/85 99 04/09/17 20:20 95 Nasal Cannula 3.00 04/09/17 20:00 96.6 93 17 152/70 95 04/09/17 20:00 Nasal Cannula 2.00 21 04/09/17 16:00 95.6 84 18 113/70 94 04/09/17 12:00 97.0 95 20 120/72 95 I/O 04/09/17 04/09/17 04/09/17 04/10/17 04/10/17 04/10/17 07:00 15:00 23:00 07:00 15:00 23:00 Intake Total 957 ml 600 ml 480 ml 1798 ml Output Total 800 ml 900 ml 1200 ml 1600 ml Balance 157 ml -300 ml -720 ml 198 ml Intake Oral 280 ml 600 ml 480 ml 480 ml IV Total 677 ml 1318 ml Output Urine Total 800 ml 900 ml 1200 ml 1600 ml # Bowel Movements 1 0 1 Result Diagram: 04/09/17 0510 04/09/17 0510 Imaging Last Impressions Chest CT 04/09/17 1304 Signed Impressions: Service Date/Time: Sunday, April 09, 2017 15:14 - CONCLUSION: 1. Focal patchiness within the left lung base consistent with atelectasis and/or mild infiltrate with underlying bronchiectasis. 2. Bi-apical fibrotic scarring and emphysematous changes. 3. Elevation of left hemidiaphragm. 4. Cardiomegaly and coronary artery calcifications. 5. Degenerative changes and scoliosis of the thoracolumbar spine. Delta Bustillo MD Chest X-Ray 04/08/17 6709 Signed Impressions: Service Date/Time: Saturday, April 08, 2017 17:52 - CONCLUSION: Mild left base atelectasis. Surgical changes and with slightly worse volume loss on the left. Darrell Reyes MD Procedures No procedures. Other Results Laboratory Tests Test 04/08/17 04/08/17 04/08/17 04/08/17 17:45 19:16 20:20 22:00 Prothrombin Time 12.7 SEC Prothromb Time International 1.1 RATIO Ratio Activated Partial 29.3 SEC Thromboplast Time Total Creatine Kinase 112 U/L Creatine Kinase MB 4.4 NG/ML Troponin I LESS THAN 0.02 NG/ML Blood Gas Puncture Site RT RADIAL Blood Gas Patient Temperature 98.6 Blood Gas HCO3 21 mmol/L Blood Gas Base Excess -2.3 mmol/L Blood Gas Oxygen Saturation 93 % Arterial Blood pH 7.48 Arterial Blood Partial 29 mmHg Pressure CO2 Arterial Blood Partial 76 mmHG Pressure O2 Arterial Blood Oxygen Content 17.3 Vol % Arterial Blood 0.5 % Carboxyhemoglobin Arterial Blood Methemoglobin 1.5 % Blood Gas Hemoglobin 13.2 G/DL Oxygen Delivery Device ROOM AIR Blood Gas Inspired Oxygen 21 % Urine Color YELLOW Urine Turbidity CLEAR Urine pH 6.5 Urine Specific [place] 1.014 Urine Protein NEG mg/dL Urine Glucose (UA) 70 mg/dL Urine Ketones 10 mg/dL Urine Occult Blood NEG Urine Nitrite NEG Urine Bilirubin NEG Urine Urobilinogen LESS THAN 2.0 MG/DL Urine Leukocyte Esterase NEG Urine RBC LESS THAN 1 /hpf Urine WBC 1 /hpf Urine Hyaline Casts 1 /lpf Microscopic Urinalysis Comment CULT NOT INDICATED B-Type Natriuretic Peptide 155 PG/ML Test 04/09/17 05:10 White Blood Count 7.5 TH/MM3 Red Blood Count 4.64 MIL/MM3 Hemoglobin 14.7 GM/DL Hematocrit 44.7 % Mean Corpuscular Volume 96.2 FL Mean Corpuscular Hemoglobin 31.8 PG Mean Corpuscular Hemoglobin 33.0 % Concent Red Cell Distribution Width 13.4 % Platelet Count 195 TH/MM3 Mean Platelet Volume 9.5 FL Neutrophils (%) (Auto) 90.6 % Lymphocytes (%) (Auto) 6.3 % Monocytes (%) (Auto) 2.5 % Eosinophils (%) (Auto) 0.2 % Basophils (%) (Auto) 0.4 % Neutrophils # (Auto) 6.8 TH/MM3 Lymphocytes # (Auto) 0.5 TH/MM3 Monocytes # (Auto) 0.2 TH/MM3 Eosinophils # (Auto) 0.0 TH/MM3 Basophils # (Auto) 0.0 TH/MM3 CBC Comment DIFF FINAL Differential Comment Hematology Comments Sodium Level 128 MEQ/L Potassium Level 4.9 MEQ/L Chloride Level 97 MEQ/L Carbon Dioxide Level 19.4 MEQ/L Anion Gap 12 MEQ/L Blood Urea Nitrogen 14 MG/DL Creatinine 0.79 MG/DL Estimat Glomerular Filtration 94 ML/MIN Rate Random Glucose 158 MG/DL Calcium Level 8.8 MG/DL Total Bilirubin 0.6 MG/DL Aspartate Amino Transf 22 U/L (AST/SGOT) Alanine Aminotransferase 18 U/L (ALT/SGPT) Alkaline Phosphatase 89 U/L Total Protein 7.1 GM/DL Albumin 3.7 GM/DL Objective Remarks GENERAL: persistent dry nonproductive cough on inspiration SKIN: No rashes, ecchymoses or lesions. HEAD: Atraumatic. Normocephalic. No temporal or scalp tenderness. EYES: Extraocular motions intact. No scleral icterus. No injection or drainage. ENT: Nose without bleeding, purulent drainage or septal hematoma. NECK: Trachea midline. No JVD or lymphadenopathy. Supple. CARDIOVASCULAR: Regular rate and rhythm without murmurs, gallops, or rubs. RESPIRATORY: Severe decreased breath sounds, no wheezing, or crackles. GASTROINTESTINAL: Abdomen soft, non-tender, nondistended. MUSCULOSKELETAL: Extremities without clubbing, cyanosis, or edema. NEUROLOGICAL: Awake and alert. Medications and IVs Current Medications Medications (Trade) Dose Ordered Sig/Dashawn Route Start Time Stop Time Status Last Admin (NS 1000 ml Inj) 1,000 ml @ 100 mls/hr Q10H IV 04/08/17 21:36 04/10/17 09:03 (NS Flush) 2 ml UNSCH PRN IV FLUSH 04/08/17 21:45 (NS Flush) 2 ml BID IV FLUSH 04/09/17 09:00 (Tylenol) 650 mg Q4H PRN PO 04/08/17 21:45 (Zofran Inj) 4 mg Q6H PRN IVP 04/08/17 21:45 (Restoril) 15 mg HS PRN PO 04/08/17 21:45 04/09/17 22:10 (Carol-Colace) 1 tab BID PO 04/09/17 09:00 04/10/17 08:55 (Milk Of Magnesia Liq) 30 ml Q12H PRN PO 04/08/17 21:45 (Senokot) 17.2 mg Q12H PRN PO 04/08/17 21:45 04/09/17 20:00 (Dulcolax Supp) 10 mg DAILY PRN RECTAL 04/08/17 21:45 Lactulose 30 ml 30 ml DAILY PRN PO 04/08/17 21:45 (Levaquin 750 Mg Premix Inj) 150 ml @ 100 mls/hr Q24H IV 04/09/17 21:00 04/09/17 22:08 (Tessalon) 100 mg TID PRN PO 04/08/17 21:45 04/09/17 22:09 (SoluMEDROL INJ) 40 mg Q8HR IV PUSH 04/08/17 22:00 04/10/17 05:20 (Robitussin Ac 200-20 Mg/10 ml Liq) 10 ml Q6H PRN PO 04/09/17 00:00 04/10/17 08:59 (Symbicort 160-4.5 Inh) 1 puff Q12HR INH 04/09/17 21:00 04/10/17 08:55 (Tylenol-Codeine #3) 1 tab Q8HR PRN PO 04/09/17 15:45 04/10/17 00:19 A/P Assessment and Plan This is a 81-year-old male with past medical history which includes coronary artery disease with [place], Anemia, Allergic rhinitis, Chronic pain and GERD. Patient reports he has had a persistent dry nonproductive cough for the past 1- 2 months. Patient reports the is cough started after he had a Left arm venous bypass graft. Patient presents to the ER today due to worsening of this persistent nonproductive cough and shortness of breath. On admission patient presented with pulse oxygenation of 85%. Patient uses oxygen at home which he ordered from [facility]. O2 has not been ordered by his physician. Acute respiratory failure with hypoxia acute exacerbation of chronic COPD PNA Cough CXR reviewed by me reveals Mild left base atelectasis. Surgical changes and with slightly worse volume loss on the left. Titrate oxygen via NC to maintain oxygen saturation Start Levaquin 750mg IV daily Continue Bronchodilator, Mucolytic, incentive spirometry, Steroids, IV, hospital cleaning specialist following. blood culture, Legionella antigen and Pneumococcal antigen negative. DVT prophylaxis with SCDs and TEDS Discharge Planning Expected in one to two days. Zachery Rendon MD Apr 10, 2017 11:22 Consult Pulmonology, patient known to Dr. Tee Lizama AC Urine for Legionella antigen, Pneumococcal antigen Sputum for C&S Mateusz Fernandez with codeine for cough DVT prophylaxis with SCDs and TEDS Zachery Rendon MD Apr 10, 2017 11:22
--- NOTE | 2017-04-10 13:53 | EKG ---
Date Performed: 04/10/2017 Time Performed: 10:39:30 PTAGE: 81 years EKG: BASELINE ARTIFACT PRESENT. Sinus rhythm ELECTRONIC VENTRICULAR PACEMAKER ABNORMAL RHYTHM ECG NO SIGNIFICANT CHANGE FROM PRIOR ELECTROCARDIOG DEJON. PREVIOUS TRACING : 04/08/2017 17.39 DOCTOR: Giuseppe Scott Interpretating Date/Time 04/10/2017 13:52:26
--- NOTE | 2017-04-10 18:57 | HHI.PR ---
Subjective Remarks Better today. Less cough.No fever. Output was good. Objective Vital Signs Date Time Temp Pulse Resp B/P Pulse Ox O2 Delivery O2 Flow Rate FiO2 04/10/17 17:40 96.7 84 20 99/56 94 04/10/17 16:22 96.7 84 20 99/56 94 04/10/17 15:21 95 Nasal Cannula 3.00 04/10/17 12:00 97.6 86 20 123/68 95 04/10/17 09:03 96 Nasal Cannula 3.00 04/10/17 08:00 96.6 73 16 141/63 96 04/10/17 07:52 96 Nasal Cannula 3.00 04/10/17 04:56 96.9 73 17 120/58 97 04/10/17 00:32 96.9 85 20 111/85 99 04/09/17 20:20 95 Nasal Cannula 3.00 04/09/17 20:00 96.6 93 17 152/70 95 04/09/17 20:00 Nasal Cannula 2.00 21 I/O 04/09/17 04/09/17 04/09/17 04/10/17 04/10/17 04/10/17 07:00 15:00 23:00 07:00 15:00 23:00 Intake Total 957 ml 600 ml 480 ml 1798 ml Output Total 800 ml 900 ml 1200 ml 1600 ml 275 ml Balance 157 ml -300 ml -720 ml 198 ml -275 ml Intake Oral 280 ml 600 ml 480 ml 480 ml IV Total 677 ml 1318 ml Output Urine Total 800 ml 900 ml 1200 ml 1600 ml 275 ml # Voids 1 # Bowel Movements 1 0 1 Result Diagram: 04/09/17 0510 04/09/17 0510 Procedures No procedures. Objective Remarks This is a thinly built elderly white male who is alert in no acute distress. HEENT: Head normocephalic. Pupils are reactive. Tongue is dry. Throat is injected. NECK: Supple. No bruits or thyroid enlargement. CHEST: Distant breath sounds with occasional crackles in the left lung field with wheezes throughout both lung alvarez. Prolonged expirations. HEART: Heart sounds are irregular, S1-S2 with no murmur. No S3. ABDOMEN: The abdomen is soft and protuberant without masses. No organomegaly or tenderness. EXTREMITIES: min edema. Peripheral pulses are diminished. Reflexes are with no gross motor deficits. SKIN: No lesions noted. Assessment and Plan Assessment and Plan IMPRESSION 1. Basilar pneumonia with hypoxemia. 2. COPD with chronic bronchitis 3. Interstitial lung disease and bronchiectasis 4. Chronic back pain Plan : 1. Cont Antibiotics, Levaquin 2. O2 at 3 L 3. Solumedrol 40 mg IV q8h. 4. Symbicort 160/4.5 mcg , 2puffs bid. 5. BMP in am 6. Sputum for C&S. D'Kaylah Crane MD Apr 10, 2017 18:57
[2017-04-10] MEDS: LEVOFLOXACIN 750 MG PREMIX INJ 150 ML IV SCH (21:09)
[2017-04-10] MEDS: BENZONATATE 100 MG CAP PO PRN (21:14)
[2017-04-11] VITALS (10 sets, daily range): BP systolic 118–180; BP diastolic 58–85; PULSE 73–87; RESP 16–18; TEMP 95.6–97.3; O2SAT 95–98
[2017-04-11] MEDS: SODIUM CHLOR 0.9% 1000 ML INJ 1,000 ML IV SCH (01:46)
[2017-04-11] MEDS: methylPREDNISolone SOD SUCC 40 MG/1 ML VIAL IV PUSH SCH ×2 (05:22→16:23)
[2017-04-11 06:53] LABS: BICARBONATE 25.6 MEQ/L (21.0-32.0); POTASSIUM 4.1 MEQ/L (3.5-5.1)
[2017-04-11] MEDS: RESP: ALBUTEROL 2.5 MG/IPRATROPIUM 0.5 MG NEB (SCH) NEB ×4 (07:53→19:41)
[2017-04-11] MEDS: SODIUM CHLORIDE 0.9% FLUSH 10 ML FLUSH IV FLUSH SCH ×2 (09:00→23:00)
[2017-04-11] MEDS: DOCUSATE SODIUM 50 MG/SENNA 8.6 MG TAB PO SCH ×2 (09:00→21:00)
[2017-04-11] MEDS: BUDESONIDE-FORMOTEROL 160/4.5 MCG INHALER INH SCH ×2 (09:29→20:51)
[2017-04-11] MEDS: BENZONATATE 100 MG CAP PO PRN (09:35)
[2017-04-11] MEDS: guaiFENesin/CODEINE SYRUP 200 MG/20 MG/10 ML CUP PO PRN (16:30)
--- NOTE | 2017-04-11 17:53 | HHI.PR ---
Subjective Remarks Has GERD, CAD, Anemia, End Stage COPD, with Respiratory insufficiency, asked for contract law specialist consult, he had CABG and after this procedure, he worsened his shortness of breath, will continue Bronchodilator, Mucolytic, incentive spirometry follow recommendations by contract law specialist. 04/11: Patient seen in his bedroom, was tried to talk with his Daughter Gardenia but did not answer her phone, no nausea, vomit or diarrhea, patient with End stage COPD, contract law specialist following. Objective Vital Signs Date Time Temp Pulse Resp B/P Pulse Ox O2 Delivery O2 Flow Rate FiO2 04/11/17 16:00 95.9 85 16 178/84 95 04/11/17 12:00 96.9 76 18 180/85 98 04/11/17 09:30 80 04/11/17 08:00 96.3 80 16 176/70 96 04/11/17 07:53 95 Nasal Cannula 4.00 04/11/17 04:00 95.8 82 18 118/58 96 04/11/17 00:00 95.6 73 18 153/67 98 04/10/17 21:07 100 Nasal Cannula 3.00 04/10/17 20:00 96.3 83 18 158/92 100 04/10/17 20:00 92 I/O 04/10/17 04/10/17 04/10/17 04/11/17 04/11/17 04/11/17 07:00 15:00 23:00 07:00 15:00 23:00 Intake Total 1798 ml 1141 ml 729 ml 480 ml Output Total 1600 ml 275 ml 900 ml Balance 198 ml -275 ml 1141 ml -171 ml 480 ml Intake Oral 480 ml 480 ml 0 ml 480 ml IV Total 1318 ml 661 ml 729 ml Output Urine Total 1600 ml 275 ml 900 ml # Voids 1 1 2 # Bowel Movements 2 Result Diagram: 04/09/17 0510 04/11/17 0359 Imaging Last Impressions Chest CT 04/09/17 1304 Signed Impressions: Service Date/Time: Sunday, April 09, 2017 15:14 - CONCLUSION: 1. Focal patchiness within the left lung base consistent with atelectasis and/or mild infiltrate with underlying bronchiectasis. 2. Bi-apical fibrotic scarring and emphysematous changes. 3. Elevation of left hemidiaphragm. 4. Cardiomegaly and coronary artery calcifications. 5. Degenerative changes and scoliosis of the thoracolumbar spine. Delta Bustillo MD Chest X-Ray 04/08/17 8046 Signed Impressions: Service Date/Time: Saturday, April 08, 2017 17:52 - CONCLUSION: Mild left base atelectasis. Surgical changes and with slightly worse volume loss on the left. Darrell Reyes MD Procedures No procedures. Other Results Laboratory Tests Test 04/08/17 04/08/17 04/08/17 04/08/17 17:45 19:16 20:20 22:00 Prothrombin Time 12.7 SEC Prothromb Time International 1.1 RATIO Ratio Activated Partial 29.3 SEC Thromboplast Time Total Creatine Kinase 112 U/L Creatine Kinase MB 4.4 NG/ML Troponin I LESS THAN 0.02 NG/ML Blood Gas Puncture Site RT RADIAL Blood Gas Patient Temperature 98.6 Blood Gas HCO3 21 mmol/L Blood Gas Base Excess -2.3 mmol/L Blood Gas Oxygen Saturation 93 % Arterial Blood pH 7.48 Arterial Blood Partial 29 mmHg Pressure CO2 Arterial Blood Partial 76 mmHG Pressure O2 Arterial Blood Oxygen Content 17.3 Vol % Arterial Blood 0.5 % Carboxyhemoglobin Arterial Blood Methemoglobin 1.5 % Blood Gas Hemoglobin 13.2 G/DL Oxygen Delivery Device ROOM AIR Blood Gas Inspired Oxygen 21 % Urine Color YELLOW Urine Turbidity CLEAR Urine pH 6.5 Urine Specific [place] 1.014 Urine Protein NEG mg/dL Urine Glucose (UA) 70 mg/dL Urine Ketones 10 mg/dL Urine Occult Blood NEG Urine Nitrite NEG Urine Bilirubin NEG Urine Urobilinogen LESS THAN 2.0 MG/DL Urine Leukocyte Esterase NEG Urine RBC LESS THAN 1 /hpf Urine WBC 1 /hpf Urine Hyaline Casts 1 /lpf Microscopic Urinalysis Comment CULT NOT INDICATED B-Type Natriuretic Peptide 155 PG/ML Test 04/09/17 04/11/17 05:10 03:59 White Blood Count 7.5 TH/MM3 Red Blood Count 4.64 MIL/MM3 Hemoglobin 14.7 GM/DL Hematocrit 44.7 % Mean Corpuscular Volume 96.2 FL Mean Corpuscular Hemoglobin 31.8 PG Mean Corpuscular Hemoglobin 33.0 % Concent Red Cell Distribution Width 13.4 % Platelet Count 195 TH/MM3 Mean Platelet Volume 9.5 FL Neutrophils (%) (Auto) 90.6 % Lymphocytes (%) (Auto) 6.3 % Monocytes (%) (Auto) 2.5 % Eosinophils (%) (Auto) 0.2 % Basophils (%) (Auto) 0.4 % Neutrophils # (Auto) 6.8 TH/MM3 Lymphocytes # (Auto) 0.5 TH/MM3 Monocytes # (Auto) 0.2 TH/MM3 Eosinophils # (Auto) 0.0 TH/MM3 Basophils # (Auto) 0.0 TH/MM3 CBC Comment DIFF FINAL Differential Comment Hematology Comments Total Bilirubin 0.6 MG/DL Aspartate Amino Transf 22 U/L (AST/SGOT) Alanine Aminotransferase 18 U/L (ALT/SGPT) Alkaline Phosphatase 89 U/L Total Protein 7.1 GM/DL Albumin 3.7 GM/DL Sodium Level 135 MEQ/L Potassium Level 4.1 MEQ/L Chloride Level 102 MEQ/L Carbon Dioxide Level 25.6 MEQ/L Anion Gap 7 MEQ/L Blood Urea Nitrogen 15 MG/DL Creatinine 0.72 MG/DL Estimat Glomerular Filtration 105 ML/MIN Rate Random Glucose 209 MG/DL Calcium Level 8.3 MG/DL Objective Remarks GENERAL: persistent dry nonproductive cough on inspiration SKIN: No rashes, ecchymoses or lesions. HEAD: Atraumatic. Normocephalic. No temporal or scalp tenderness. EYES: Extraocular motions intact. No scleral icterus. No injection or drainage. ENT: Nose without bleeding, purulent drainage or septal hematoma. NECK: Trachea midline. No JVD or lymphadenopathy. Supple. CARDIOVASCULAR: Regular rate and rhythm without murmurs, gallops, or rubs. RESPIRATORY: Severe decreased breath sounds, no wheezing, or crackles. GASTROINTESTINAL: Abdomen soft, non-tender, nondistended. MUSCULOSKELETAL: Extremities without clubbing, cyanosis, or edema. NEUROLOGICAL: Awake and alert. Medications and IVs Current Medications Medications (Trade) Dose Ordered Sig/Dashawn Route Start Time Stop Time Status Last Admin (NS Flush) 2 ml UNSCH PRN IV FLUSH 04/08/17 21:45 (NS Flush) 2 ml BID IV FLUSH 04/09/17 09:00 (Tylenol) 650 mg Q4H PRN PO 04/08/17 21:45 (Zofran Inj) 4 mg Q6H PRN IVP 04/08/17 21:45 (Restoril) 15 mg HS PRN PO 04/08/17 21:45 04/09/17 22:10 (Carol-Colace) 1 tab BID PO 04/09/17 09:00 04/10/17 21:09 (Milk Of Magnesia Liq) 30 ml Q12H PRN PO 04/08/17 21:45 (Senokot) 17.2 mg Q12H PRN PO 04/08/17 21:45 04/09/17 20:00 (Dulcolax Supp) 10 mg DAILY PRN RECTAL 04/08/17 21:45 Lactulose 30 ml 30 ml DAILY PRN PO 04/08/17 21:45 (Levaquin 750 Mg Premix Inj) 150 ml @ 100 mls/hr Q24H IV 04/09/17 21:00 04/10/17 21:09 (Tessalon) 100 mg TID PRN PO 04/08/17 21:45 04/11/17 09:35 (SoluMEDROL INJ) 40 mg Q8HR IV PUSH 04/08/17 22:00 04/11/17 16:23 (Robitussin Ac 200-20 Mg/10 ml Liq) 10 ml Q6H PRN PO 04/09/17 00:00 04/11/17 16:30 (Symbicort 160-4.5 Inh) 1 puff Q12HR INH 04/09/17 21:00 04/11/17 09:29 (Tylenol-Codeine #3) 1 tab Q8HR PRN PO 04/09/17 15:45 04/10/17 00:19 A/P Assessment and Plan This is a 81-year-old male with past medical history which includes coronary artery disease with [place], Anemia, Allergic rhinitis, Chronic pain and GERD. Patient reports he has had a persistent dry nonproductive cough for the past 1- 2 months. Patient reports the is cough started after he had a Left arm venous bypass graft. Patient presents to the ER today due to worsening of this persistent nonproductive cough and shortness of breath. On admission patient presented with pulse oxygenation of 85%. Patient uses oxygen at home which he ordered from [facility]. O2 has not been ordered by his physician. Acute on chronic respiratory failure with hypoxia Improving. 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 no acute pathology PNA not seen on CXR or CT scan on antibiotics to shorten this process. CXR reviewed by me reveals Mild left base atelectasis. Surgical changes and with slightly worse volume loss on the left. Titrate oxygen via NC to maintain oxygen saturation Start Levaquin 750mg IV daily Continue Bronchodilator, Mucolytic, incentive spirometry, Steroids, IV, bed control specialist following. blood culture, Legionella antigen and Pneumococcal antigen negative. DVT prophylaxis with SCDs and TEDS Discharge Planning Expected for tomorrow. Zachery Rendon MD Apr 11, 2017 17:53
[2017-04-11] MEDS ORDERED: ENALAPRILAT 1.25 MG/ML VIAL IV PUSH PRN (18:00)
[2017-04-11] MEDS: amLODIPine BESYLATE 5 MG TAB PO SCH (18:00)
[2017-04-11] MEDS ORDERED: ENALAPRILAT 1.25 MG/ML VIAL IV PUSH ONE (19:00)
--- NOTE | 2017-04-11 19:09 | HHI.PR ---
Subjective Remarks Better today. Has some cough.No fever. Has some back pains.Output was good. Objective Vital Signs Date Time Temp Pulse Resp B/P Pulse Ox O2 Delivery O2 Flow Rate FiO2 04/11/17 16:00 95.9 85 16 178/84 95 04/11/17 12:00 96.9 76 18 180/85 98 04/11/17 09:30 80 04/11/17 08:00 96.3 80 16 176/70 96 04/11/17 07:53 95 Nasal Cannula 4.00 04/11/17 04:00 95.8 82 18 118/58 96 04/11/17 00:00 95.6 73 18 153/67 98 04/10/17 21:07 100 Nasal Cannula 3.00 04/10/17 20:00 96.3 83 18 158/92 100 04/10/17 20:00 92 I/O 04/10/17 04/10/17 04/10/17 04/11/17 04/11/17 04/11/17 07:00 15:00 23:00 07:00 15:00 23:00 Intake Total 1798 ml 1141 ml 729 ml 480 ml Output Total 1600 ml 275 ml 900 ml Balance 198 ml -275 ml 1141 ml -171 ml 480 ml Intake Oral 480 ml 480 ml 0 ml 480 ml IV Total 1318 ml 661 ml 729 ml Output Urine Total 1600 ml 275 ml 900 ml # Voids 1 1 2 # Bowel Movements 2 Result Diagram: 04/09/17 0510 04/11/17 0359 Procedures No procedures. Objective Remarks This is a thinly built elderly white male who is alert in no acute distress. HEENT: Head normocephalic. Pupils are reactive. Tongue is dry. Throat is injected. NECK: Supple. No bruits or thyroid enlargement. CHEST: Distant breath sounds with occasional crackles at bases. with wheezes throughout both lung alvarez. Prolonged expirations. HEART: Heart sounds are irregular, S1-S2 with no murmur. No S3. ABDOMEN: The abdomen is soft and protuberant without masses. No organomegaly or tenderness. EXTREMITIES: min edema. Peripheral pulses are diminished. Reflexes are 1 + no gross motor deficits. SKIN: No lesions noted. Assessment and Plan Assessment and Plan IMPRESSION 1. Basilar pneumonia with hypoxemia. 2. COPD with chronic bronchitis 3. Interstitial lung disease and bronchiectasis 4. Chronic back pain Plan : 1. Cont Antibiotics, Levaquin 2. O2 at 3 L 3. Wean Solumedrol 40 mg IV q12 h. 4. Symbicort 160/4.5 mcg , 2puffs bid. 5. CXR in am 6. Switch to PO meds in am 7. Ambulate with help Kaylah Oliveira MD Apr 11, 2017 19:09
[2017-04-11] MEDS: LEVOFLOXACIN 750 MG PREMIX INJ 150 ML IV SCH (20:51)
[2017-04-11] MEDS: ACETAMINOPHEN/CODEINE 300 MG/30 MG TAB PO PRN (20:54)
[2017-04-12] VITALS (11 sets, daily range): BP systolic 142–160; BP diastolic 66–91; PULSE 65–121; RESP 18–22; TEMP 96.5–97.7; O2SAT 93–97
--- NOTE | 2017-04-12 06:39 | RADRPT ---
EXAM DATE/TIME: 04/12/2017 05:40 [place] COMPARISON: CHEST SINGLE AP, April 08, 2017, 17:52. INDICATIONS : Short of breath. Evaluate for pneumonia. MEDICAL HISTORY : Myocardial infarction. Cerebrovascular disease. Hepatitis C. SURGICAL HISTORY : Pacemaker. ENCOUNTER: Subsequent ACUITY: 4 - 6 days PAIN SCORE: 0/10 LOCATION: Bilateral chest FINDINGS: There is no appreciable pleural effusion for technique. Heart and mediastinum are unremarkable. Left subclavian transvenous pacer wires are present with tips in the right atrium and right ventricle. Le ft hemidiaphragm is elevated not changed. The rest of the examination has not significantly changed w ith mild atelectasis left lung base. CONCLUSION: No appreciable change. Cleo Fulton MD on April 12, 2017 at 6:37 Board Certified Radiologist. This report was verified electronically.
[2017-04-12] MEDS: RESP: ALBUTEROL 2.5 MG/IPRATROPIUM 0.5 MG NEB (SCH) NEB ×4 (08:00→20:03)
[2017-04-12] MEDS ORDERED: methylPREDNISolone SOD SUCC 40 MG/1 ML VIAL IV PUSH SCH (09:00)
[2017-04-12] MEDS: DOCUSATE SODIUM 50 MG/SENNA 8.6 MG TAB PO SCH ×2 (09:00→20:15)
[2017-04-12] MEDS: amLODIPine BESYLATE 5 MG TAB PO SCH (09:46)
[2017-04-12] MEDS: SODIUM CHLORIDE 0.9% FLUSH 10 ML FLUSH IV FLUSH SCH ×2 (09:46→20:17)
[2017-04-12] MEDS: BUDESONIDE-FORMOTEROL 160/4.5 MCG INHALER INH SCH ×2 (09:47→20:16)
[2017-04-12] MEDS: BENZONATATE 100 MG CAP PO PRN ×2 (10:01→20:14)
[2017-04-12] MEDS: ACETAMINOPHEN/CODEINE 300 MG/30 MG TAB PO PRN ×2 (10:05→20:14)
[2017-04-12] MEDS ORDERED: GETGO ROLLING W1 MI1 (10:37)
--- NOTE | 2017-04-12 10:45 | HHI.PR ---
Subjective Remarks Has GERD, CAD, Anemia, End Stage COPD, with Respiratory insufficiency, asked for client resource specialist consult, he had CABG and after this procedure, he worsened his shortness of breath, will continue Bronchodilator, Mucolytic, incentive spirometry follow recommendations by client resource specialist. 04/12: Seen in his bedroom in the presence of nurse Miss Jennifer flood, patient stable wants to go home, no nausea, vomit or diarrhea, at baseline, he will need a Rolling walker at discharge, also will need six minutes walk, following specialist recommendations for discharge. Objective Vital Signs Date Time Temp Pulse Resp B/P Pulse Ox O2 Delivery O2 Flow Rate FiO2 04/12/17 08:00 96.5 65 18 142/85 97 04/12/17 01:19 97.7 82 18 160/66 97 04/11/17 21:25 97.3 76 18 120/72 95 04/11/17 20:51 95 Nasal Cannula 3.00 04/11/17 20:02 87 04/11/17 19:44 95 Nasal Cannula 3.00 04/11/17 16:00 95.9 85 16 178/84 95 04/11/17 12:00 96.9 76 18 180/85 98 I/O 04/11/17 04/11/17 04/11/17 04/12/17 04/12/17 04/12/17 07:00 15:00 23:00 07:00 15:00 23:00 Intake Total 729 ml 480 ml 150 ml 0 ml Output Total 900 ml 200 ml Balance -171 ml 480 ml 150 ml -200 ml 0 ml Intake Oral 0 ml 480 ml 0 ml IV Total 729 ml 150 ml Output Urine Total 900 ml 200 ml # Voids 2 # Bowel Movements 2 Result Diagram: 04/09/17 0510 04/11/17 0359 Imaging Last Impressions Chest X-Ray 04/12/17 0600 Signed Impressions: Service Date/Time: March 05:40 - CONCLUSION: No appreciable change. Cleo Fulton MD Chest CT 04/09/17 1304 Signed Impressions: Service Date/Time: Sunday, April 09, 2017 15:14 - CONCLUSION: 1. Focal patchiness within the left lung base consistent with atelectasis and/or mild infiltrate with underlying bronchiectasis. 2. Bi-apical fibrotic scarring and emphysematous changes. 3. Elevation of left hemidiaphragm. 4. Cardiomegaly and coronary artery calcifications. 5. Degenerative changes and scoliosis of the thoracolumbar spine. Delta Bustillo MD Procedures No procedures. Other Results Laboratory Tests Test 04/08/17 04/08/17 04/08/17 04/08/17 17:45 19:16 20:20 22:00 Prothrombin Time 12.7 SEC Prothromb Time International 1.1 RATIO Ratio Activated Partial 29.3 SEC Thromboplast Time Total Creatine Kinase 112 U/L Creatine Kinase MB 4.4 NG/ML Troponin I LESS THAN 0.02 NG/ML Blood Gas Puncture Site RT RADIAL Blood Gas Patient Temperature 98.6 Blood Gas HCO3 21 mmol/L Blood Gas Base Excess -2.3 mmol/L Blood Gas Oxygen Saturation 93 % Arterial Blood pH 7.48 Arterial Blood Partial 29 mmHg Pressure CO2 Arterial Blood Partial 76 mmHG Pressure O2 Arterial Blood Oxygen Content 17.3 Vol % Arterial Blood 0.5 % Carboxyhemoglobin Arterial Blood Methemoglobin 1.5 % Blood Gas Hemoglobin 13.2 G/DL Oxygen Delivery Device ROOM AIR Blood Gas Inspired Oxygen 21 % Urine Color YELLOW Urine Turbidity CLEAR Urine pH 6.5 Urine Specific [place] 1.014 Urine Protein NEG mg/dL Urine Glucose (UA) 70 mg/dL Urine Ketones 10 mg/dL Urine Occult Blood NEG Urine Nitrite NEG Urine Bilirubin NEG Urine Urobilinogen LESS THAN 2.0 MG/DL Urine Leukocyte Esterase NEG Urine RBC LESS THAN 1 /hpf Urine WBC 1 /hpf Urine Hyaline Casts 1 /lpf Microscopic Urinalysis Comment CULT NOT INDICATED B-Type Natriuretic Peptide 155 PG/ML Test 04/09/17 04/11/17 05:10 03:59 White Blood Count 7.5 TH/MM3 Red Blood Count 4.64 MIL/MM3 Hemoglobin 14.7 GM/DL Hematocrit 44.7 % Mean Corpuscular Volume 96.2 FL Mean Corpuscular Hemoglobin 31.8 PG Mean Corpuscular Hemoglobin 33.0 % Concent Red Cell Distribution Width 13.4 % Platelet Count 195 TH/MM3 Mean Platelet Volume 9.5 FL Neutrophils (%) (Auto) 90.6 % Lymphocytes (%) (Auto) 6.3 % Monocytes (%) (Auto) 2.5 % Eosinophils (%) (Auto) 0.2 % Basophils (%) (Auto) 0.4 % Neutrophils # (Auto) 6.8 TH/MM3 Lymphocytes # (Auto) 0.5 TH/MM3 Monocytes # (Auto) 0.2 TH/MM3 Eosinophils # (Auto) 0.0 TH/MM3 Basophils # (Auto) 0.0 TH/MM3 CBC Comment DIFF FINAL Differential Comment Hematology Comments Total Bilirubin 0.6 MG/DL Aspartate Amino Transf 22 U/L (AST/SGOT) Alanine Aminotransferase 18 U/L (ALT/SGPT) Alkaline Phosphatase 89 U/L Total Protein 7.1 GM/DL Albumin 3.7 GM/DL Sodium Level 135 MEQ/L Potassium Level 4.1 MEQ/L Chloride Level 102 MEQ/L Carbon Dioxide Level 25.6 MEQ/L Anion Gap 7 MEQ/L Blood Urea Nitrogen 15 MG/DL Creatinine 0.72 MG/DL Estimat Glomerular Filtration 105 ML/MIN Rate Random Glucose 209 MG/DL Calcium Level 8.3 MG/DL Objective Remarks GENERAL: persistent dry nonproductive cough on inspiration SKIN: No rashes, ecchymoses or lesions. HEAD: Atraumatic. Normocephalic. No temporal or scalp tenderness. EYES: Extraocular motions intact. No scleral icterus. No injection or drainage. ENT: Nose without bleeding, purulent drainage or septal hematoma. NECK: Trachea midline. No JVD or lymphadenopathy. Supple. CARDIOVASCULAR: Regular rate and rhythm without murmurs, gallops, or rubs. RESPIRATORY: Severe decreased breath sounds, no wheezing, or crackles. GASTROINTESTINAL: Abdomen soft, non-tender, nondistended. MUSCULOSKELETAL: Extremities without clubbing, cyanosis, or edema. NEUROLOGICAL: Awake and alert. Medications and IVs Current Medications Medications (Trade) Dose Ordered Sig/Dashawn Route Start Time Stop Time Status Last Admin (NS Flush) 2 ml UNSCH PRN IV FLUSH 04/08/17 21:45 (NS Flush) 2 ml BID IV FLUSH 04/09/17 09:00 04/12/17 09:46 (Tylenol) 650 mg Q4H PRN PO 04/08/17 21:45 (Zofran Inj) 4 mg Q6H PRN IVP 04/08/17 21:45 (Restoril) 15 mg HS PRN PO 04/08/17 21:45 04/09/17 22:10 (Carol-Colace) 1 tab BID PO 04/09/17 09:00 04/10/17 21:09 (Milk Of Magnesia Liq) 30 ml Q12H PRN PO 04/08/17 21:45 (Senokot) 17.2 mg Q12H PRN PO 04/08/17 21:45 04/09/17 20:00 (Dulcolax Supp) 10 mg DAILY PRN RECTAL 04/08/17 21:45 Lactulose 30 ml 30 ml DAILY PRN PO 04/08/17 21:45 (Levaquin 750 Mg Premix Inj) 150 ml @ 100 mls/hr Q24H IV 04/09/17 21:00 04/11/17 20:51 (Tessalon) 100 mg TID PRN PO 04/08/17 21:45 04/12/17 10:01 (Robitussin Ac 200-20 Mg/10 ml Liq) 10 ml Q6H PRN PO 04/09/17 00:00 04/11/17 16:30 (Symbicort 160-4.5 Inh) 1 puff Q12HR INH 04/09/17 21:00 04/12/17 09:47 (Tylenol-Codeine #3) 1 tab Q8HR PRN PO 04/09/17 15:45 04/12/17 10:05 (Norvasc) 5 mg DAILY PO 04/11/17 18:00 04/12/17 09:46 (Vasotec Inj) 0.65 mg Q6H PRN IV PUSH 04/11/17 18:00 (SoluMEDROL INJ) 40 mg BID IV PUSH 04/12/17 09:00 04/12/17 09:46 A/P Assessment and Plan This is a 81-year-old male with past medical history which includes coronary artery disease with [place], Anemia, Allergic rhinitis, Chronic pain and GERD. Patient reports he has had a persistent dry nonproductive cough for the past 1- 2 months. Patient reports the is cough started after he had a Left arm venous bypass graft. Patient presents to the ER today due to worsening of this persistent nonproductive cough and shortness of breath. On admission patient presented with pulse oxygenation of 85%. Patient uses oxygen at home which he ordered from [facility]. O2 has not been ordered by his physician. Acute on chronic respiratory failure with hypoxia Improving. 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 no acute pathology PNA not clear on CXR or CT scan looks more a chronic condition with Fibrosis, as per client resource specialist has Pneumonia and continue on antibiotics. CXR reviewed by me reveals Mild left base atelectasis. Surgical changes and with slightly worse volume loss on the left. Titrate oxygen via NC to maintain oxygen saturation Start Levaquin 750mg IV daily Continue Bronchodilator, Mucolytic, incentive spirometry, Steroids, IV, software qa system specialist following. blood culture, Legionella antigen and Pneumococcal antigen negative. DVT prophylaxis with SCDs and TEDS Discharge Planning Expected later today. Zachery Rendon MD Apr 12, 2017 10:45
[2017-04-12] MEDS: guaiFENesin/CODEINE SYRUP 200 MG/20 MG/10 ML CUP PO PRN ×2 (13:31→20:15)
--- NOTE | 2017-04-12 18:12 | HHI.PR ---
Subjective Remarks Better today. Has some cough.No fever.C/O back pains. Objective Vital Signs Date Time Temp Pulse Resp B/P Pulse Ox O2 Delivery O2 Flow Rate FiO2 04/12/17 16:05 97 Nasal Cannula 3.00 04/12/17 16:00 96.7 121 18 146/75 96 04/12/17 13:40 96.6 78 18 144/80 96 04/12/17 12:36 93 21 04/12/17 12:35 96 Nasal Cannula 2.00 04/12/17 12:00 96.6 78 18 144/80 96 04/12/17 09:57 Nasal Cannula 3.50 04/12/17 08:00 96.5 65 18 142/85 97 04/12/17 01:19 97.7 82 18 160/66 97 04/11/17 21:25 97.3 76 18 120/72 95 04/11/17 20:51 95 Nasal Cannula 3.00 04/11/17 20:02 87 04/11/17 19:44 95 Nasal Cannula 3.00 I/O 04/11/17 04/11/17 04/11/17 04/12/17 04/12/17 04/12/17 07:00 15:00 23:00 07:00 15:00 23:00 Intake Total 729 ml 480 ml 150 ml 360 ml Output Total 900 ml 200 ml Balance -171 ml 480 ml 150 ml -200 ml 360 ml Intake Oral 0 ml 480 ml 360 ml IV Total 729 ml 150 ml Output Urine Total 900 ml 200 ml # Voids 2 # Bowel Movements 2 Result Diagram: 04/09/17 0510 04/11/17 0359 Procedures No procedures. Objective Remarks This is a thinly built elderly white male who is alert in no acute distress. HEENT: Head normocephalic. Pupils are reactive. Tongue is dry. Throat is clear NECK: Supple. No bruits or thyroid enlargement. CHEST: Distant breath sounds with occasional crackles at bases. with wheezes . Prolonged expirations. HEART: Heart sounds are irregular, S1-S2 with no murmur. No S3. ABDOMEN: The abdomen is soft and protuberant without masses. No organomegaly or tenderness. EXTREMITIES: min edema. Peripheral pulses are diminished. Reflexes are 1 + no gross motor deficits. SKIN: No lesions noted. Assessment and Plan Assessment and Plan IMPRESSION 1. Basilar pneumonia with hypoxemia. 2. COPD with chronic bronchitis 3. Interstitial lung disease and bronchiectasis 4. Chronic back pain Plan : 1. Cont Antibiotics, Levaquin and switch to PO. 2. O2 at 3 L 3. D/C Solumedrol 4. Symbicort 160/4.5 mcg , 2puffs bid. 5. Prednisone 20 mg bid and taper 6. Home in am on O2 7. Ambulate with help Kaylah Oliveira MD Apr 12, 2017 18:12
[2017-04-12] MEDS: LEVOFLOXACIN 750 MG TAB PO SCH (20:15)
[2017-04-12] MEDS: predniSONE 20 MG TAB PO SCH (20:16)
[2017-04-12] MEDS ORDERED: AMLO5 PO (22:21)
[2017-04-12] MEDS ORDERED: LEVA750T9 PO (22:21)
[2017-04-12] MEDS ORDERED: PRED20 PO (22:21)
--- NOTE | 2017-04-12 22:21 | HHI.DCPOC ---
Discharge Care Plan Diagnosis: (1) PNA (pneumonia) (2) COPD exacerbation Your Health Problems Are: Difficulty with ADL Exercise Tolerance Goals to Promote Your Health * To prevent worsening of your condition and complications * To maintain your health at the optimal level Directions to Meet Your Goals Take your medications as prescribed Follow your dietary instruction Follow activity as directed Keep your appointments as scheduled Take your immunizations and boosters as scheduled If your symptoms worsen call your PCP, if no PCP go to Urgent Care Center or Emergency Room Smoking is Dangerous to Your Health. Avoid second hand smoke Call the 24-hour hour crisis hotline for domestic abuse at Bobby Russ MD Apr 12, 2017 22:21
[2017-04-12] MEDS: TEMAZEPAM 15 MG CAP PO PRN (22:57)
[2017-04-13] VITALS (8 sets, daily range): BP systolic 121–177; BP diastolic 58–91; PULSE 78–110; RESP 16–22; TEMP 95.4–99; O2SAT 94–97
[2017-04-13 01:40] LABS: HEMATOCRIT 38.1 % (39.0-51.0); HEMO FLAGS DIFF FINAL; LYMPH % 6.5 % (9.0-44.0); LYMPHOCYTE # 0.6 TH/MM3 (1.0-4.8); MEAN CELL VOLUME 95.8 FL (80.0-100.0); MEAN CORPUSCULAR HEMOGLOBIN 31.6 PG (27.0-34.0); NEUT % 82.5 % (16.0-70.0); PLATELET COUNT 216 TH/MM3 (150-450); RED BLOOD COUNT 3.97 MIL/MM3 (4.50-5.90); RED CELL DISTRIBUTION WIDTH 13.4 % (11.6-17.2); WHITE BLOOD COUNT 9.7 TH/MM3 (4.0-11.0)
[2017-04-13 01:50] LABS: BICARBONATE 28.1 MEQ/L (21.0-32.0); MAGNESIUM 1.7 MG/DL (1.5-2.5); POTASSIUM 4.5 MEQ/L (3.5-5.1)
--- NOTE | 2017-04-13 06:18 | HHI.PR ---
Addendum to Inpatient Note Addendum Reason: Additional Documentation Additional Information Patient had an asymptomatic run of non-sustained vtach at around 9 p.m. for at least 19 beats (per telemetry that I personally reviewed). VSS. The patient has an AICD/PM. Will need AICD interrogation - discussed with RN and placed a consultation for Dr. Rojas who placed the AICD/PM in 08/2015. Labs were drawn and were unremarkable - further evaluation and management per daytime attending and/or Dr. Rojas. Dali Juarez Apr 13, 2017 06:18
[2017-04-13] MEDS: RESP: ALBUTEROL 2.5 MG/IPRATROPIUM 0.5 MG NEB (SCH) NEB ×4 (08:29→20:28)
[2017-04-13] MEDS: BUDESONIDE-FORMOTEROL 160/4.5 MCG INHALER INH SCH ×2 (09:00→20:05)
[2017-04-13] MEDS ORDERED: MAGNESIUM SULFATE 1 GM PREMIX 100 ML IV ONE (09:00)
[2017-04-13] MEDS ORDERED: OXYGENDME NAS.CANULA (09:17)
--- NOTE | 2017-04-13 09:19 | HHI.PR ---
Subjective Remarks Follow-up NSVT. History of cardio myopathy followed by Dr. Rojas. 19 beat NSVT last night completely asymptomatic denies chest pain, palpitations, shortness of breath and dizziness. Discussed with RN Objective Vitals Vital Signs Date Time Temp Pulse Resp B/P Pulse Ox O2 Delivery O2 Flow Rate FiO2 04/13/17 08:32 95 Nasal Cannula 2.00 04/13/17 03:56 97.9 87 20 136/66 95 04/13/17 00:00 96.8 81 20 121/58 95 04/12/17 23:00 78 04/12/17 20:00 97.2 83 22 153/91 93 04/12/17 19:00 93 Nasal Cannula 3.00 04/12/17 18:33 96.7 121 18 146/75 96 04/12/17 16:05 97 Nasal Cannula 3.00 04/12/17 16:00 96.7 121 18 146/75 96 04/12/17 13:40 96.6 78 18 144/80 96 04/12/17 12:36 93 21 04/12/17 12:35 96 Nasal Cannula 2.00 04/12/17 12:00 96.6 78 18 144/80 96 04/12/17 09:57 Nasal Cannula 3.50 I/O 04/12/17 04/12/17 04/12/17 04/13/17 04/13/17 04/13/17 07:00 15:00 23:00 07:00 15:00 23:00 Intake Total 360 ml 320 ml 240 ml Output Total 200 ml 1000 ml Balance -200 ml 360 ml -680 ml 240 ml Intake Oral 360 ml 320 ml 240 ml Output Urine Total 200 ml 1000 ml # Voids 2 # Bowel Movements 0 0 Result Diagram: 04/13/17 0035 04/13/17 0035 Imaging Last Impressions Chest X-Ray 04/12/17 0600 Signed Impressions: Service Date/Time: March 05:40 - CONCLUSION: No appreciable change. Cleo Fulton MD Chest CT 04/09/17 1304 Signed Impressions: Service Date/Time: Sunday, April 09, 2017 15:14 - CONCLUSION: 1. Focal patchiness within the left lung base consistent with atelectasis and/or mild infiltrate with underlying bronchiectasis. 2. Bi-apical fibrotic scarring and emphysematous changes. 3. Elevation of left hemidiaphragm. 4. Cardiomegaly and coronary artery calcifications. 5. Degenerative changes and scoliosis of the thoracolumbar spine. Delta Bustillo MD Objective Remarks GENERAL: Well-developed, well-nourished in no distress SKIN: Warm and dry. HEAD: Atraumatic. Normocephalic. EYES: Pupils equal and round. No scleral icterus. No injection or drainage. ENT: No nasal bleeding or discharge. Mucous membranes pink and moist. NECK: Trachea midline. No JVD. CARDIOVASCULAR: Regular rate and rhythm. RESPIRATORY: No accessory muscle use. Clear to auscultation. Decreased Breath sounds equal bilaterally. GASTROINTESTINAL: Abdomen soft, non-tender, nondistended. MUSCULOSKELETAL: Extremities without clubbing, cyanosis, or edema. No obvious deformities. NEUROLOGICAL: Awake and alert. No obvious cranial nerve deficits. Motor grossly within normal limits. Five out of 5 muscle strength in the arms and legs. Normal speech. PSYCHIATRIC: Appropriate mood and affect; insight and judgment normal. Procedures None A/P Problem List: (1) Acute respiratory failure ICD Code: J96.00 Status: Acute (2) Hypoxia ICD Code: R09.02 Status: Acute (3) PNA (pneumonia) ICD Code: J18.9 Status: Acute (4) COPD exacerbation ICD Code: J44.1 Status: Acute Assessment and Plan This is a 81-year-old male with past medical history which includes coronary artery disease with [place], Anemia, Allergic rhinitis, Chronic pain and GERD. Patient reports he has had a persistent dry nonproductive cough for the past 1- 2 months. Patient reports the is cough started after he had a Left arm venous bypass graft. Patient presents to the ER due to worsening of this persistent nonproductive cough and shortness of breath. On admission patient presented with pulse oxygenation of 85%. Patient uses oxygen at home which he ordered from [facility]. O2 has not been ordered by his physician. Acute on chronic respiratory failure with hypoxia. Improving. 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 no acute pathology PNA not clear on CXR or CT scan looks more a chronic condition with Fibrosis, as per network operations specialist has Pneumonia and continue on antibiotics. CXR reviewed by me reveals Mild left base atelectasis. Surgical changes and with slightly worse volume loss on the left. Titrate oxygen via NC to maintain oxygen saturation Continue Levaquin by mouth Continue Bronchodilator, Mucolytic, incentive spirometry, Steroids, secretary specialist following. blood culture, Legionella antigen and Pneumococcal antigen negative. NSVT history of nonischemic cardiomyopathy status post AICD. TSH within normal limits. Pacemaker interrogation today. Replace magnesium to keep level at least 2. Consider beta mal. Cardiology consulted Hyponatremia. Likely secondary to respiratory status. Asymptomatic. Monitor Hyperglycemia. Check A1c. DVT prophylaxis with SCDs and TEDS. Start subcutaneous heparin Discharge Planning Possible discharge later today or in the morning Bobby Russ MD Apr 13, 2017 09:19
[2017-04-13] MEDS ORDERED: LEVA750T9 PO (09:55)
[2017-04-13] MEDS: SENNOSIDES 8.6 MG TAB PO PRN (10:11)
[2017-04-13] MEDS: BENZONATATE 100 MG CAP PO PRN ×2 (10:11→18:16)
[2017-04-13] MEDS: amLODIPine BESYLATE 5 MG TAB PO SCH (10:11)
[2017-04-13] MEDS: predniSONE 20 MG TAB PO SCH ×2 (10:11→20:05)
[2017-04-13] MEDS: HEPARIN SODIUM - SQ 10,000 UNITS/ML VIAL SQ SCH ×2 (10:11→20:07)
[2017-04-13] MEDS: DOCUSATE SODIUM 50 MG/SENNA 8.6 MG TAB PO SCH ×2 (10:12→20:05)
[2017-04-13] MEDS: SODIUM CHLORIDE 0.9% FLUSH 10 ML FLUSH IV FLUSH SCH ×2 (10:12→20:07)
[2017-04-13] MEDS: guaiFENesin/CODEINE SYRUP 200 MG/20 MG/10 ML CUP PO PRN (15:09)
[2017-04-13 15:22] LABS: HEMOGLOBIN A1a 1.4 %; HEMOGLOBIN A1b 2.1 %; HEMOGLOBIN Ao 82.2 %; HEMOGLOBIN LA1C 2.6 %; HEMOGLOBIN P3 4.8 %
--- NOTE | 2017-04-13 19:00 | HHI.PR ---
Subjective Remarks Better today. Has no cough.No fever. On PO Meds. Had one run of NSVT last PM . Cadiology evaluating Objective Vital Signs Date Time Temp Pulse Resp B/P Pulse Ox O2 Delivery O2 Flow Rate FiO2 04/13/17 16:00 97.0 89 18 177/91 94 04/13/17 15:19 97 Nasal Cannula 2.00 04/13/17 12:00 96.7 110 20 142/83 94 04/13/17 08:32 95 Nasal Cannula 2.00 04/13/17 08:00 95.4 78 16 164/81 94 04/13/17 03:56 97.9 87 20 136/66 95 04/13/17 00:00 96.8 81 20 121/58 95 04/12/17 23:00 78 04/12/17 20:00 97.2 83 22 153/91 93 04/12/17 19:00 93 Nasal Cannula 3.00 I/O 04/12/17 04/12/17 04/12/17 04/13/17 04/13/17 04/13/17 07:00 15:00 23:00 07:00 15:00 23:00 Intake Total 360 ml 320 ml 240 ml 600 ml Output Total 200 ml 1000 ml 400 ml Balance -200 ml 360 ml -680 ml 240 ml 200 ml Intake Oral 360 ml 320 ml 240 ml 600 ml Output Urine Total 200 ml 1000 ml 400 ml # Voids 2 # Bowel Movements 0 0 0 Result Diagram: 04/13/175 04/13/17 0035 Procedures No procedures. Objective Remarks This is a thinly built elderly white male who is alert in no acute distress. HEENT: Head normocephalic. Pupils are reactive. Tongue is dry. Throat is clear NECK: Supple. No bruits or thyroid enlargement. CHEST: Distant breath sounds with occasional crackles at bases. with no wheezes . HEART: Heart sounds are irregular, S1-S2 with no murmur. No S3. ABDOMEN: The abdomen is soft and protuberant without masses. No organomegaly or tenderness. EXTREMITIES: No edema. Peripheral pulses are diminished. Reflexes are 1 + no gross motor deficits. SKIN: No lesions noted. Assessment and Plan Assessment and Plan IMPRESSION 1. Basilar pneumonia with hypoxemia. 2. COPD with chronic bronchitis 3. Interstitial lung disease and bronchiectasis 4. Chronic back pain Plan : 1. Cont Antibiotics, Levaquin for 3 days 2. O2 at 3 L. arrange home O2 3. Cardiology to see 4. Symbicort 160/4.5 mcg , 2puffs bid. 5. Prednisone 20 mg bid 6. Duonebs tid. 7. Ambulate with help Kaylah Oliveira MD Apr 13, 2017 19:00
[2017-04-13] MEDS: guaiFENesin E.R. 600 MG TAB PO SCH (20:05)
[2017-04-13] MEDS: LEVOFLOXACIN 750 MG TAB PO SCH (20:05)
[2017-04-13] MEDS: TEMAZEPAM 15 MG CAP PO PRN (22:08)
--- NOTE | 2017-04-13 22:35 | EKG ---
Date Performed: 04/12/2017 Time Performed: 21:16:15 PTAGE: 81 years EKG: ELECTRONIC VENTRICULAR PACEMAKER ABNORMAL RHYTHM ECG PREVIOUS TRACING : 04/10/2017 10.39 DOCTOR: Jazzy Rojas Interpretating Date/Time 04/13/2017 22:33:25
[2017-04-14] VITALS (7 sets, daily range): BP systolic 107–160; BP diastolic 62–89; PULSE 80–93; RESP 17–22; TEMP 95.6–97.1; O2SAT 93–97
[2017-04-14] MEDS: BENZONATATE 100 MG CAP PO PRN (04:49)
[2017-04-14 05:55] LABS: BICARBONATE 28.1 MEQ/L (21.0-32.0); MAGNESIUM 1.9 MG/DL (1.5-2.5); POTASSIUM 4.3 MEQ/L (3.5-5.1)
[2017-04-14] MEDS: DOCUSATE SODIUM 50 MG/SENNA 8.6 MG TAB PO SCH ×2 (08:58→20:19)
[2017-04-14] MEDS: SODIUM CHLORIDE 0.9% FLUSH 10 ML FLUSH IV FLUSH SCH ×2 (08:59→20:20)
[2017-04-14] MEDS: HEPARIN SODIUM - SQ 10,000 UNITS/ML VIAL SQ SCH ×2 (08:59→20:24)
[2017-04-14] MEDS: BUDESONIDE-FORMOTEROL 160/4.5 MCG INHALER INH SCH ×2 (08:59→20:20)
[2017-04-14] MEDS: amLODIPine BESYLATE 5 MG TAB PO SCH (08:59)
[2017-04-14] MEDS: guaiFENesin E.R. 600 MG TAB PO SCH ×2 (08:59→20:19)
[2017-04-14] MEDS: predniSONE 20 MG TAB PO SCH ×2 (08:59→20:20)
[2017-04-14] MEDS: RESP: ALBUTEROL 2.5 MG/IPRATROPIUM 0.5 MG NEB (SCH) NEB (09:03)
[2017-04-14] MEDS: CARVEDILOL 6.25 MG TAB PO SCH ×2 (12:30→20:20)
--- NOTE | 2017-04-14 13:49 | HHI.PR ---
Subjective Remarks Follow-up NSVT. Multiple episodes today of NSVT. Denies chest pain, palpitations and shortness of breath. He continues to have paroxysms of cough. Pacemaker interrogation shows VT with normal functioning device. Discussed with pulmonary and RN Objective Vitals Vital Signs Date Time Temp Pulse Resp B/P Pulse Ox O2 Delivery O2 Flow Rate FiO2 04/14/17 12:00 96.3 93 20 107/62 94 04/14/17 09:05 94 21 04/14/17 04:00 96.2 80 22 150/83 97 04/14/17 00:00 97.1 82 22 160/79 97 04/13/17 20:45 Room Air 04/13/17 20:00 99.0 92 22 161/90 94 04/13/17 16:00 97.0 89 18 177/91 94 04/13/17 15:19 97 Nasal Cannula 2.00 I/O 04/13/17 04/13/17 04/13/17 04/14/17 04/14/17 04/14/17 07:00 15:00 23:00 07:00 15:00 23:00 Intake Total 240 ml 600 ml 240 ml 240 ml Output Total 400 ml Balance 240 ml 200 ml 240 ml 240 ml Intake Oral 240 ml 600 ml 240 ml 240 ml Output Urine Total 400 ml # Voids 2 1 4 1 # Bowel Movements 0 0 0 0 Result Diagram: 04/13/17 0035 04/14/17 0458 Imaging Last Impressions Chest X-Ray 04/12/17 0600 Signed Impressions: Service Date/Time: March 05:40 - CONCLUSION: No appreciable change. Cleo Fulton MD Chest CT 04/09/17 1304 Signed Impressions: Service Date/Time: Sunday, April 09, 2017 15:14 - CONCLUSION: 1. Focal patchiness within the left lung base consistent with atelectasis and/or mild infiltrate with underlying bronchiectasis. 2. Bi-apical fibrotic scarring and emphysematous changes. 3. Elevation of left hemidiaphragm. 4. Cardiomegaly and coronary artery calcifications. 5. Degenerative changes and scoliosis of the thoracolumbar spine. Delta Bustillo MD Objective Remarks GENERAL: Well-developed, well-nourished in distress due to coughing SKIN: Warm and dry. HEAD: Atraumatic. Normocephalic. EYES: Pupils equal and round. No scleral icterus. No injection or drainage. ENT: No nasal bleeding or discharge. Mucous membranes pink and moist. NECK: Trachea midline. No JVD. CARDIOVASCULAR: Tachycardic RESPIRATORY: No accessory muscle use. Clear to auscultation. Decreased Breath sounds equal bilaterally. GASTROINTESTINAL: Abdomen soft, non-tender, nondistended. MUSCULOSKELETAL: Extremities without clubbing, cyanosis, or edema. No obvious deformities. NEUROLOGICAL: Awake and alert. No obvious cranial nerve deficits. Motor grossly within normal limits. Five out of 5 muscle strength in the arms and legs. Normal speech. PSYCHIATRIC: Appropriate mood and affect; insight and judgment normal. Procedures None A/P Problem List: (1) Acute respiratory failure ICD Code: J96.00 Status: Acute (2) Hypoxia ICD Code: R09.02 Status: Acute (3) PNA (pneumonia) ICD Code: J18.9 Status: Acute (4) COPD exacerbation ICD Code: J44.1 Status: Acute Assessment and Plan This is a 81-year-old male with past medical history which includes coronary artery disease with [place], Anemia, Allergic rhinitis, Chronic pain and GERD. Patient reports he has had a persistent dry nonproductive cough for the past 1- 2 months. Patient reports the is cough started after he had a Left arm venous bypass graft. Patient presents to the ER due to worsening of this persistent nonproductive cough and shortness of breath. On admission patient presented with pulse oxygenation of 85%. Patient uses oxygen at home which he ordered from [facility]. O2 has not been ordered by his physician. Acute on chronic respiratory failure with hypoxia. Improving currently on room air. 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 No acute pathology PNA not clear on CXR or CT scan looks more a chronic condition with Fibrosis, as per retail presentation specialist has Pneumonia and continue on antibiotics. CXR reviewed by me reveals Mild left base atelectasis. Surgical changes and with slightly worse volume loss on the left. Titrate oxygen via NC to maintain oxygen saturation Continue Levaquin by mouth Continue Bronchodilator, Mucolytic, incentive spirometry, Steroids, email campaign specialist following. Add scheduled Tessalon. Improved coughing blood culture, Legionella antigen and Pneumococcal antigen negative. NSVT history of nonischemic cardiomyopathy status post AICD. TSH within normal limits. Pacemaker shows normal functioning device. Multiple episodes of NSVT today. Replace magnesium to keep level at least 2. Start Coreg. Cardiology consulted Hyponatremia, acute on chronic. Asymptomatic. Restart sodium chloride tabs. Monitor repeat BMP in the morning Hyperglycemia. A1c 6.6. Diabetic education DVT prophylaxis with SCDs and TEDS. Continue subcutaneous heparin Discharge Planning Possible discharge later today or in the morning Bobby Russ MD Apr 14, 2017 13:49
--- NOTE | 2017-04-14 15:20 | HHI.PR ---
Subjective Remarks Had an Episode of tachy arythmia . Has a cough. No chest pain Cardiology evaluating Objective Vital Signs Date Time Temp Pulse Resp B/P Pulse Ox O2 Delivery O2 Flow Rate FiO2 04/14/17 12:00 96.3 93 20 107/62 94 04/14/17 09:05 94 21 04/14/17 04:00 96.2 80 22 150/83 97 04/14/17 00:00 97.1 82 22 160/79 97 04/13/17 20:45 Room Air 04/13/17 20:00 99.0 92 22 161/90 94 04/13/17 16:00 97.0 89 18 177/91 94 04/13/17 15:19 97 Nasal Cannula 2.00 I/O 04/13/17 04/13/17 04/13/17 04/14/17 04/14/17 04/14/17 07:00 15:00 23:00 07:00 15:00 23:00 Intake Total 240 ml 600 ml 240 ml 240 ml Output Total 400 ml Balance 240 ml 200 ml 240 ml 240 ml Intake Oral 240 ml 600 ml 240 ml 240 ml Output Urine Total 400 ml # Voids 2 1 4 1 # Bowel Movements 0 0 0 0 Result Diagram: 04/13/17 0035 04/14/17 0458 Procedures No procedures. Objective Remarks This is a thinly built elderly white male who is alert in no acute distress. HEENT: Head normocephalic. Pupils are reactive. Tongue is dry. Throat is clear NECK: Supple. No bruits or thyroid enlargement. CHEST: Distant breath sounds with occasional crackles at bases. with wheezes . HEART: Heart sounds are irregular, S1-S2 with no murmur. No S3. ABDOMEN: The abdomen is soft and protuberant without masses. No organomegaly or tenderness. EXTREMITIES: No edema. Peripheral pulses are diminished. Reflexes are 1 + no gross motor deficits. SKIN: No lesions noted. Assessment and Plan Assessment and Plan IMPRESSION 1. Basilar pneumonia with hypoxemia. 2. COPD with chronic bronchitis 3. Interstitial lung disease and bronchiectasis 4. Chronic back pain 5. Atrial Arrythmia Plan : 1. Cont Levaquin for 3 days 2. O2 at 3 L. arrange home O2 3. Tessalon Perles 100 mg qid prn for cough 4. Symbicort 160/4.5 mcg , 2puffs bid. 5. Prednisone 30 mg daily 6. Duonebs tid. 7. Ambulate with help Kaylah Oliveira MD Apr 14, 2017 15:20
[2017-04-14] MEDS ORDERED: RESP: ALBUTEROL 0.63 MG/3 ML NEB (PRN) NEB (16:00)
[2017-04-14] MEDS ORDERED: SODI1TAB PO (16:09)
[2017-04-14] MEDS ORDERED: CARV6.25 PO (16:09)
[2017-04-14] MEDS ORDERED: BENZ100 PO (16:09)
[2017-04-14] MEDS: BENZONATATE 100 MG CAP PO SCH (17:24)
[2017-04-14] MEDS: LEVOFLOXACIN 750 MG TAB PO SCH (20:19)
[2017-04-14] MEDS: SODIUM CHLORIDE 1 GRAM TAB PO SCH (20:19)
[2017-04-14] MEDS: TEMAZEPAM 15 MG CAP PO PRN (21:44)
[2017-04-14] MEDS: RESP: ALBUTEROL 0.63 MG/3 ML NEB (SCH) NEB (21:47)
[2017-04-14] MEDS: RESP: IPRATROPIUM 0.5 MG/2.5 ML NEB NEB SCH (21:47)
[2017-04-15] VITALS: BP 106/55; PULSE 84; RESP 17; TEMP 96.2; O2SAT 95
[2017-04-15 04:00] VITALS: BP 130/80; PULSE 69; RESP 17; TEMP 96; O2SAT 97
[2017-04-15 06:22] LABS: BICARBONATE 29.2 MEQ/L (21.0-32.0); MAGNESIUM 2.3 MG/DL (1.5-2.5)
[2017-04-15 06:23] LABS: POTASSIUM 4.3 MEQ/L (3.5-5.1)
[2017-04-15] MEDS: predniSONE 20 MG TAB PO SCH (07:56)
[2017-04-15] MEDS: amLODIPine BESYLATE 5 MG TAB PO SCH (07:56)
[2017-04-15] MEDS: BUDESONIDE-FORMOTEROL 160/4.5 MCG INHALER INH SCH (07:57)
[2017-04-15] MEDS: SODIUM CHLORIDE 0.9% FLUSH 10 ML FLUSH IV FLUSH SCH (07:57)
[2017-04-15] MEDS: DOCUSATE SODIUM 50 MG/SENNA 8.6 MG TAB PO SCH (07:57)
[2017-04-15] MEDS: CARVEDILOL 6.25 MG TAB PO SCH (07:57)
[2017-04-15] MEDS: SODIUM CHLORIDE 1 GRAM TAB PO SCH (07:57)
[2017-04-15] MEDS: guaiFENesin E.R. 600 MG TAB PO SCH (07:57)
[2017-04-15] MEDS: BENZONATATE 100 MG CAP PO SCH ×2 (07:57→13:00)
[2017-04-15] MEDS: RESP: IPRATROPIUM 0.5 MG/2.5 ML NEB NEB SCH (08:04)
[2017-04-15] MEDS: RESP: ALBUTEROL 0.63 MG/3 ML NEB (SCH) NEB (08:04)
[2017-04-15 08:05] VITALS: O2SAT 97
[2017-04-15 08:13] VITALS: BP 153/71; PULSE 67; RESP 18; TEMP 97; O2SAT 94
[2017-04-15] MEDS: HEPARIN SODIUM - SQ 10,000 UNITS/ML VIAL SQ SCH (09:04)
[2017-04-15 09:40] VITALS: BP 153/71
--- NOTE | 2017-04-15 10:38 | RADRPT ---
EXAM DATE/TIME: 04/15/2017 09:45 [facility] COMPARISON: CHEST PA & LAT, August 12, 2016, 16:30. INDICATIONS : Short of Breath MEDICAL HISTORY : Myocardial infarction. Cerebrovascular disease. Hepatitis C. SURGICAL HISTORY : Pacemaker. ENCOUNTER: Subsequent ACUITY: 1 week PAIN SCORE: 0/10 LOCATION: Bilateral chest FINDINGS: No new consolidation or effusion. Stable elevation left hemidiaphragm. Stable pacer leads. Stable fus ion lower cervical spine and calcifications in the left subclavian region. CONCLUSION: 1. No acute findings. Octavio Salinas MD on April 15, 2017 at 10:34 Board Certified Radiologist. This report was verified electronically.
--- NOTE | 2017-04-15 11:18 | HHI.DS ---
Discharge Summary Admission Date Apr 08, 2017 at 21:14 Discharge Date: Apr 15, 2017 Admitting Diagnosis hypoxia, possible PNA (1) Acute respiratory failure ICD Code: J96.00 Diagnosis: Principal (2) Hypoxia ICD Code: R09.02 Diagnosis: Principal (3) PNA (pneumonia) ICD Code: J18.9 Diagnosis: Principal (4) COPD exacerbation ICD Code: J44.1 Diagnosis: Principal Procedures None Brief History - From Admission This is a 81-year-old male with past medical history which includes coronary artery disease with OH, Anemia, Allergic rhinitis, Chronic pain and GERD. Patient reports he has had a persistent dry nonproductive cough for the past 1- 2 months. Patient reports the is cough started after he had a Left arm venous bypass graft. Patient presents to the ER today due to worsening of this persistent nonproductive cough and shortness of breath. On admission patient presented with pulse oxygenation of 85%. Patient uses oxygen at home which he ordered from [employer]. O2 has not been ordered by his physician. Patient reports his cough continues through out both day and night. Patient has tried over the counter Mucinex with minimal relief. Patient reports drinking wine daily to help sooth his throat. Patient denies chest pain, fever , chills, abdominal pain, nausea, vomiting, dysuria, lower extremity swelling or weight gain. Patient is followed by Dr. Rojas, cardiology and Dr. Schroeder, pulmonology. He was seen at a quick care today, told that he had PNA or possible effusion and instructed to follow up in the emergency department. CBC/BMP: 04/13/17 0035 04/15/17 0344 Significant Findings Laboratory Tests Test 04/13/17 04/14/17 04/15/17 00:35 04:58 03:44 Red Blood Count 3.97 MIL/MM3 (4.50-5.90) Hemoglobin 12.6 GM/DL (13.0-17.0) Hematocrit 38.1 % (39.0-51.0) Neutrophils (%) (Auto) 82.5 % (16.0-70.0) Lymphocytes (%) (Auto) 6.5 % (9.0-44.0) Monocytes (%) (Auto) 11.0 % (0.0-8.0) Neutrophils # (Auto) 8.0 TH/MM3 (1.8-7.7) Lymphocytes # (Auto) 0.6 TH/MM3 (1.0-4.8) Monocytes # (Auto) 1.1 TH/MM3 (0-0.9) Sodium Level 129 MEQ/L 127 MEQ/L 129 MEQ/L (136-145) (136-145) (136-145) Chloride Level 95 MEQ/L 92 MEQ/L 93 MEQ/L (98-107) (98-107) (98-107) Estimat Glomerular Filtration 75 ML/MIN (>89) 85 ML/MIN (>89) 87 ML/MIN (>89) Rate Random Glucose 164 MG/DL 164 MG/DL 143 MG/DL (74-106) (74-106) (74-106) Hemoglobin A1c 6.6 % (4.3-6.0) B-Type Natriuretic Peptide 395 PG/ML (0-100) Blood Urea Nitrogen 20 MG/DL (7-18) 26 MG/DL (7-18) Serum Osmolality 272 MOSM/KG (275-295) Imaging Last Impressions Chest X-Ray 04/15/17 0600 Signed Impressions: Service Date/Time: Saturday, April 15, 2017 09:45 - CONCLUSION: 1. No acute findings. Octavio Salinas MD Chest CT 04/09/17 1304 Signed Impressions: Service Date/Time: Sunday, April 09, 2017 15:14 - CONCLUSION: 1. Focal patchiness within the left lung base consistent with atelectasis and/or mild infiltrate with underlying bronchiectasis. 2. Bi-apical fibrotic scarring and emphysematous changes. 3. Elevation of left hemidiaphragm. 4. Cardiomegaly and coronary artery calcifications. 5. Degenerative changes and scoliosis of the thoracolumbar spine. Delta Bustillo MD PE at Discharge GENERAL: Well-developed, well-nourished in distress due to coughing SKIN: Warm and dry. HEAD: Atraumatic. Normocephalic. EYES: Pupils equal and round. No scleral icterus. No injection or drainage. ENT: No nasal bleeding or discharge. Mucous membranes pink and moist. NECK: Trachea midline. No JVD. CARDIOVASCULAR: Tachycardic RESPIRATORY: No accessory muscle use. Clear to auscultation. Decreased Breath sounds equal bilaterally. GASTROINTESTINAL: Abdomen soft, non-tender, nondistended. MUSCULOSKELETAL: Extremities without clubbing, cyanosis, or edema. No obvious deformities. NEUROLOGICAL: Awake and alert. No obvious cranial nerve deficits. Motor grossly within normal limits. Five out of 5 muscle strength in the arms and legs. Normal speech. PSYCHIATRIC: Appropriate mood and affect; insight and judgment normal. Hospital Course This is a 81-year-old male with past medical history which includes coronary artery disease with OH, Anemia, Allergic rhinitis, Chronic pain and GERD. Patient reports he has had a persistent dry nonproductive cough for the past 1- 2 months. Patient reports the is cough started after he had a Left arm venous bypass graft. Patient presents to the ER due to worsening of this persistent nonproductive cough and shortness of breath. On admission patient presented with pulse oxygenation of 85%. Patient uses oxygen at home which he ordered from [employer]. O2 has not been ordered by his physician. Acute on chronic respiratory failure with hypoxia. Improving tolerating nasal cannula. 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 No acute pathology PNA not clear on CXR or CT scan looks more a chronic condition with Fibrosis, as per math specialist has Pneumonia and continue on antibiotics. CXR reviewed by me reveals Mild left base atelectasis. Surgical changes and with slightly worse volume loss on the left. Titrate oxygen via NC to maintain oxygen saturation Continue Levaquin by mouth Continue Bronchodilator, Mucolytic, incentive spirometry, Steroids, nuclear operations specialist following. Add scheduled Tessalon. Improved coughing blood culture, Legionella antigen and Pneumococcal antigen negative. NSVT history of nonischemic cardiomyopathy status post AICD. TSH within normal limits. Pacemaker shows normal functioning device. Improved on Coreg. Replace magnesium to keep level at least 2. Cardiology cleared patient for discharge Hyponatremia, acute on chronic. Asymptomatic. Improving on sodium chloride tabs. Monitor repeat BMP outpatient Hyperglycemia. A1c 6.6. Diabetic education DVT prophylaxis with SCDs and TEDS. Continue subcutaneous heparin Pt Condition on Discharge: Stable Discharge Disposition: Discharge Home Discharge Time: > 30 minutes Discharge Instructions DIET: Follow Instructions for: Heart Healthy Diet Activities you can perform: Regular-No Restrictions Activities to Avoid: Driving Follow up Referrals: PCP Follow-up - 2-3 Days Pulmonology - 1 Week New Orders: BASIC METABOLIC PROF - 04/16/17 New Medications: Oxygen (O2) (Oxygen (O2)) Device 2 LITER GENO.CANULA CONTINUOUS Oxygen Concentrator Portable Gaseous 2 L/min via Nasal Canula Continuous For 99 months Prevent Hypoxemia #2 CYLINDER Walker Rolling/GetGo (Walker Rolling/GetGo) 1 Mis Mis 1 EA .ROUTE DIRECTED #1 EA Amlodipine (Norvasc) 5 Mg Tab 5 MG PO DAILY Blood Pressure Management #30 TAB Benzonatate (Tessalon Perles) 100 Mg Cap 100 MG PO TID cough #30 CAP Carvedilol (Coreg) 6.25 Mg Tab 6.25 MG PO Q12HR Regulate Heart Beat #60 TAB Levofloxacin (Levaquin) 750 Mg Tablet 750 MG PO HS Infection #5 TAB Prednisone (Prednisone) 20 Mg Tab 20 MG PO BID take one pill twice daily for 3 days then 9ne pill daily for 7 days Control Inflammation #14 TAB Sodium Chloride (Sodium Chloride) 1 Gm Tab 1 GM PO BID Electrolyte Replacement #30 TAB Continued Medications: Acetaminophen-Codeine (Tylenol-Codeine #3) 300-30 mg Tab 1-2 TAB PO Q8HR PRN PAIN Ref 0 TAB Albuterol Neb (Albuterol Neb) 0.63 Mg/3 Ml Neb 0.63 MG NEB QID NEB PRN SHORTNESS OF BREATH #125 Ref 0 NEBULE Budesonide-Formoterol Inh (Symbicort Inh) 80-4.5 Mcg/Act Aero 1 PUFF INH Q12HR Asthma Management #1 Ref 0 INHALER Additional Information I spent 35 minutes [id number] with the patient or on the renteria discussing the patient's disposition, prognosis, and plan of care with patient's caregivers. Over half the time spent was devoted to counseling the patient regarding placement in coordinating care with caregivers and case management. Bobby Russ MD Apr 15, 2017 11:18
--- NOTE | 2017-04-15 13:21 | HHI.PR ---
Subjective Remarks Had an Episode of tachy arythmia . Seen by cardiology. Will go home on O2 Has a cough. No chest pain. Objective Vital Signs Date Time Temp Pulse Resp B/P Pulse Ox O2 Delivery O2 Flow Rate FiO2 04/15/17 09:40 153/71 04/15/17 08:13 97.0 67 18 153/71 94 04/15/17 08:05 97 Nasal Cannula 3.00 04/15/17 04:00 96.0 69 17 130/80 97 04/15/17 00:19 2.00 04/15/17 00:00 96.2 84 17 106/55 95 04/14/17 21:51 93 Nasal Cannula 2.00 04/14/17 20:00 96.3 83 17 130/68 95 04/14/17 20:00 81 04/14/17 16:00 95.6 84 20 126/89 95 I/O 04/14/17 04/14/17 04/14/17 04/15/17 04/15/17 04/15/17 07:00 15:00 23:00 07:00 15:00 23:00 Intake Total 240 ml 480 ml 240 ml 120 ml Balance 240 ml 480 ml 240 ml 120 ml Intake Oral 240 ml 480 ml 240 ml 120 ml # Voids 4 3 2 2 1 # Bowel Movements 0 Result Diagram: 04/13/17 0035 04/15/17 0344 Procedures No procedures. Objective Remarks This is a thinly built elderly white male who is alert in no acute distress. HEENT: Head normocephalic. Pupils are reactive. Tongue is dry. Throat is clear NECK: Supple. No bruits or thyroid enlargement. CHEST: Distant breath sounds with occasional crackles at bases. with no wheezes . HEART: Heart sounds are irregular, S1-S2 with no murmur. No S3. ABDOMEN: The abdomen is soft without masses. No organomegaly or tenderness. EXTREMITIES: No edema. Peripheral pulses are diminished. Reflexes are 1 + no gross motor deficits. SKIN: No lesions noted. Assessment and Plan Assessment and Plan IMPRESSION 1. Basilar pneumonia with hypoxemia. 2. COPD with chronic bronchitis 3. Interstitial lung disease and bronchiectasis 4. Chronic back pain 5. Atrial Arrhythmia Plan : 1. Cont Levaquin for 2 days 2. O2 at 3 L. arrange home O2 3. Tessalon Perles 100 mg qid prn for cough 4. Symbicort 160/4.5 mcg , 2puffs bid. 5. Prednisone 20 mg daily and taper off 6. D/C Duonebs tid. 7. Home today, Will see in 2 weeks Kaylah Oliveira MD Apr 15, 2017 13:21
== END 2017-04-15 13:42 | disposition home or self-care (01) | DRG 190 ==
LOC: NEPE 17:04 → NEDA 21:14 → N07A 23:01
PROVIDERS: ADMIT Internal Medicine; ATTEND Internal Medicine
DX: J44.0 Chronic obstructive pulmonary disease with (acute) lower respiratory infection (principal); J18.9 Pneumonia, unspecified organism; J96.21 Acute and chronic respiratory failure with hypoxia; I47.2 Ventricular tachycardia; J84.10 Pulmonary fibrosis, unspecified; D63.8 Anemia in other chronic diseases classified elsewhere; Z99.81 Dependence on supplemental oxygen; E87.1 Hypo-osmolality and hyponatremia; I47.1 Supraventricular tachycardia; J44.1 Chronic obstructive pulmonary disease with (acute) exacerbation; K21.9 Gastro-esophageal reflux disease without esophagitis; G89.29 Other chronic pain; F32.9 Major depressive disorder, single episode, unspecified; F41.9 Anxiety disorder, unspecified; Z95.810 Presence of automatic (implantable) cardiac defibrillator; I25.2 Old myocardial infarction; Z87.891 Personal history of nicotine dependence
CPT/HCPCS: 36600; 71010; 71020; 71250; 80048; 80053; 81001; 82550; 82552; 82805; 83036; 83735; 83880; 83930; 83935; 84300; 84443; 84484; 85025; 85610; 85730; 87040; 87449; 93005; 94620; 94640; 94664; 96374; J1644; J1956; J2920; J3475; J7030; J7512; J7613; J7644